=== PATIENT | female | born 1945 | race Caucasian/White ===

== ENCOUNTER 2019-10-10 13:45 | Outpatient (CLI) | payer MEDICARE, OTHER ==
[~2019-10-10] VITALS: Ht 167.7 cm; Wt 91.4 kg
[2019-10-10 14:02] VITALS: BP 131/70
[2019-10-10] MEDS ORDERED: LOSA50TA63 PO (14:44)
[2019-10-10] MEDS ORDERED: TURM500C4 PO (14:44)
[2019-10-10] MEDS ORDERED: LEVO50TA6 PO (14:44)
[2019-10-10] MEDS ORDERED: CYAN500T44 PO (14:44)
[2019-10-10] MEDS ORDERED: VERA80TA2 PO (14:44)
[2019-10-10] MEDS ORDERED: ASPI-586 PO (14:44)
[2019-10-10] MEDS ORDERED: POTA99TA18 PO (14:44)
[2019-10-10] MEDS ORDERED: MAGN250T13 PO (14:44)
[2019-10-10] MEDS ORDERED: OMEP20CA13 PO (14:44)
[2019-10-10 15:17] LABS: INR 0.9 (0.8-1.4); PROTHROMBIN TIME PATIENT 12.9 SEC (12.2-14.7)
[2019-10-10] MEDS ORDERED: OMEP40CA36 PO (15:19)
[2019-10-10] MEDS ORDERED: VERA40TA2 PO (15:19)
[2019-10-12] MEDS ORDERED: OXYC1TAB87 PO (09:17)
== END 2019-10-10 14:40 | disposition home or self-care (01) ==
LOC: PREOP 13:45
PROVIDERS: ATTEND Orthopaedic Surgery
DX: Z01.812 Encounter for preprocedural laboratory examination (principal); M17.12 Unilateral primary osteoarthritis, left knee
CPT/HCPCS: 36415; 85610; 85652; 86850; 86900; 86901; 87081

== ENCOUNTER 2019-10-12 07:37 | Inpatient (IN) | payer MEDICARE, OTHER ==
--- NOTE | 2019-10-09 02:01 | HISTORY AND PHYSICAL ---
DATE OF SERVICE: ADMISSION HISTORY AND PHYSICAL DATE OF ADMISSION: 10/12/2019. This will be for inpatient admission on 10/12/2019 for the left total knee arthroplasty. HISTORY OF PRESENT ILLNESS: The patient is a 74-year-old female with known osteoarthritis of her left knee. She has undergone treatment with injections, anti-inflammatories and rest without relief. Radiographs reveal severe medial and patellofemoral arthrosis with varus alignment. Due to functional impairment and failure to improve with conservative measures, the patient has elected to proceed with surgical intervention. REVIEW OF SYSTEMS: No chest pain, no shortness of breath and no dysuria. PAST MEDICAL HISTORY: Hypothyroidism, hypertension, arrhythmia and reflux. PAST SURGICAL HISTORY: Hemorrhoid, colon resection, bilateral carpal tunnel and cataracts. FAMILY HISTORY: Significant for asthma, hypertension, Alzheimer's, cardiovascular disease. PRIMARY CARE PROVIDER: Nonlocal. MEDICATIONS: 1. Levothyroxine. 2. Losartan. 3. Verapamil. 4. Omeprazole. 5. Turmeric. 6. Calcium. 7. Fluticasone. 8. Medrol Dosepak p.r.n. ALLERGIES: SIMVASTATIN and LIPITOR. SOCIAL HISTORY: The patient is a former smoker. Denies alcohol use. PHYSICAL EXAMINATION: GENERAL: The patient is well developed, well nourished, in no acute distress. HEENT: Normocephalic and atraumatic. Pupils are equal, round, reactive to light. Lateral oropharynx is clear. NECK: Supple, no lymphadenopathy. LUNGS: Clear to auscultation bilaterally. HEART: Regular rate and rhythm. ABDOMEN: Soft, nontender and nondistended. EXTREMITIES: The left knee demonstrates varus alignment. She has a slight effusion. There is no erythema or warmth. Range of motion is 0/3/120. No varus valgus laxity. Negative anterior and posterior drawer. She ambulates with an antalgic gait. IMPRESSION: Severe left knee osteoarthritis, unresponsive to conservative measures. PLAN: Left total knee arthroplasty. The risks, benefits, options, ramifications and recovery have been discussed at length with the patient. She will require regular inpatient admission due to comorbidities, gait abnormalities, need for physical therapy and need for pain management. Job ID: [id number] DocumentID: [id number] Dictated Date: 09/30/2019 09:42:36 Torch Cutter Date: 09/30/2019 10:06:04 Dictated By: MYRIAM AVILA MD
[~2019-10-12] VITALS: Ht 167.6 cm; Wt 93.8 kg
[2019-10-12] VITALS (10 sets, daily range): BP systolic 114–173; BP diastolic 56–73
[~2019-10-12 07:37] MED LIST: ACETAMINOPHEN 325 MG TABLET PO PRN; ASPI-586 PO; CYAN500T44 PO; LEVO50TA6 PO; LOSA50TA63 PO; MAGN250T13 PO; OMEP20CA13 PO; OMEP40CA36 PO; POTA99TA18 PO; TURM500C4 PO; VERA40TA2 PO; VERA80TA2 PO; diphenhydrAMINE 50 MG/ML INJ (BENADRYL) IVP PRN; morphine PCA 100 MG/100 ML BAG IV PRN
[2019-10-12] MEDS ORDERED: LACTATED RINGERS 1,000 ML IV PRN (07:47)
[2019-10-12] MEDS ORDERED: INTRA-ARTICULAR IU ONE ×5 (08:00)
[2019-10-12] MEDS ORDERED: MULT-618 PO (08:07)
[2019-10-12] MEDS ORDERED: fentaNYL INJECTION 100 MCG/2 ML AMP ONE (08:24)
[2019-10-12] MEDS ORDERED: MIDAZOLAM 2 MG/2 ML (VERSED) VIAL ONE ×2 (08:24→08:41)
[2019-10-12] MEDS ORDERED: BUPIVACAINE 0.5% 30 ML (SENSORCAINE) VIAL ONE (08:29)
[2019-10-12] MEDS ORDERED: DEXAMETHASONE 10 MG/ML (DECADRON) 1 ML VIAL ONE (08:31)
[2019-10-12] MEDS ORDERED: LIDOCAINE PF 2% 5 ML (XYLOCAINE) VIAL ONE (08:31)
[2019-10-12] MEDS ORDERED: proPOfol 200 MG/20 ML (DIPRIVAN) VIAL IV ONE (08:31)
[2019-10-12] MEDS ORDERED: SEVOFLURANE (ULTANE) 15 ML INHAL SOLN ONE ×2 (08:31→10:19)
[2019-10-12] MEDS ORDERED: ONDANSETRON 4 MG/2 ML (SDV) Z0FRAN ONE (08:31)
[2019-10-12] MEDS ORDERED: CEFUROXIME 1.5 GM (ZINACEF) VIAL ONE (08:58)
[2019-10-12] MEDS ORDERED: WATER (STERILE) FOR INJECTION 20 ML ONE (08:58)
--- NOTE | 2019-10-12 09:13 | Progress Note-Pre Operative ---
Pre-Operative Progress Note H&P Reviewed The H&P was reviewed, patient examined and no changes noted. Date Seen by Provider: Oct 12, 2019 Time Seen by Provider: 09:00 Date H&P Reviewed: Oct 12, 2019 Time H&P Reviewed: 07:15 Pre-Operative Diagnosis: left primary osteoarthritis MYRIAM AVILA MD Oct 12, 2019 09:13 POS
--- NOTE | 2019-10-12 09:15 | Progress Note-Post Operative ---
Post-Operative Progess Note Surgeon (s)/Psychology Intern (s) Surgeon MYRIAM AVILA MD Psychology Intern: Evangelist Wilson Pre-Operative Diagnosis left knee primary osteoarthritis Post-Operative Diagnosis left knee primary osteoarthritis Procedure & Operative Findings Date of Procedure 10/12/19 Procedure Performed/Findings left total knee arthroplasty Anesthesia Type GETA Estimated Blood Loss Estimated blood loss (mL): minimal Specimens/Packing Specimens Removed none Packing: none MYRIAM AVILA MD Oct 12, 2019 09:15 POS
[2019-10-12] MEDS ORDERED: OXYC1TAB87 PO (09:17)
--- NOTE | 2019-10-12 09:18 | D/C HH Face to Face Order ---
D/C Face to Face Orders Reconcile Patient Problems Problems Reviewed?: Yes Instructions for Patient [employer] Patient Instructions/FollowUp: follow up in three weeks Physician to follow Patient: three weeks Discharge Diet for Home: Regular Diet Patient Data-Allergies,Ht & Wt Patient Allergies: Coded Allergies: atorvastatin (Verified Allergy, Unknown, JOINT PAIN, 10/10/19) simvastatin (Verified Allergy, Unknown, JOINT PAIN, 10/10/19) Home Health Need/Face to Face Date of Face to Face: Oct 12, 2019 Clinical Findings: Instability, Muscle weakness, Pain with ambulation, Unsteady gait I have seen Pt ufgl-wx-ovay: Yes Discharged To: Home Diagnosis/Conditions: left total knee arthroplasty Patient is Homebound due to: Lewis fall risk due to instabilty, Muscle weakness, Pain w/ambulation Homebound Status Due to the above stated illness, injury or surgical procedure (medical condition or diagnosis) and associated clinical findings, the patient is homebound because of his/her inability to leave home except with aid of a supportive device and/or person AND leaving the home requires a considerable and taxing effort or is medically contraindicated. Pt req the following assistanc: Walker Home Health Nursing Orders Home Health Services Order: Physical Therapy-Evaluate & Treat DC left knee belia and apply steri strips 10/26/19 Home Health Infusion Therapy Line Start Date: Oct 12, 2019 Therapy Orders Therapy Orders: Physical Therapy, PT to assess for OT Therapy Specific Orders: Eval assistive deivces, Teach enviro modifications/safety, Gait training, Increase strength/endurance, Provider maintenance therapy, Restore ROM Certify Stmt I certify that this patient is under my care and that I, a nurse practitioner or a physician; a accounting administrative assistant working with me, had a face to face encounter that - meets the physician face to face encounter requirements with this patient as dated. MYRIAM AVILA MD Oct 12, 2019 09:18 POS
[2019-10-12] MEDS ORDERED: hydrALAZINE (APESOLINE) 20 MG/ML VIAL ONE (10:05)
[2019-10-12] MEDS ORDERED: HYDROmorphone 2 MG/ML VIAL (DILAUDID) ONE (10:05)
[2019-10-12] MEDS ORDERED: ONDANSETRON 4 MG/2 ML (SDV) Z0FRAN IVP PRN (11:15)
[2019-10-12] MEDS ORDERED: morphine INJ 10 MG/ML 1ML (SYR OR VIAL) IVP ONE (11:15)
--- NOTE | 2019-10-12 11:34 | Anesthesia-General Post-Op ---
General Patient Condition Mental Status/LOC: Same as Preop Cardiovascular: Satisfactory Nausea/Vomiting: Absent Respiratory: Satisfactory Pain: Controlled Complications: Absent Post Op Complications Complications None Follow Up Care/Instructions Patient Instructions None needed. Anesthesia/Patient Condition Patient Condition Patient is doing well, no complaints, stable vital signs, no apparent adverse anesthesia problems. No complications reported per nursing. RODDY MILTON CRNA Oct 12, 2019 11:34 POS
--- NOTE | 2019-10-12 11:47 | Progress Note ---
Standard Progress Note Progress Notes/Assess & Plan Date Seen by a Provider: Oct 12, 2019 Time Seen by a Provider: 11:45 Progress/Assessment & Plan post op check no complaints radiographs--HW well positioned without fracture LLE--2 plus DP pulse with brisk cap refill. intact sensation throughout. intact DF and PF of toes and ankle s/p LTKA mobilize as able MYRIAM AVILA MD Oct 12, 2019 11:46 POS
[2019-10-12] MEDS ORDERED: NS IV 1000 ML 1,000 ML ONE (13:32)
[2019-10-12] MEDS ORDERED: morphine PCA 100 MG/100 ML BAG IV ONE (13:32)
[2019-10-12] MEDS: SENNA W/DOCUSATE (SENOKOT S) TABLET PO SCH ×2 (13:57→22:01)
--- NOTE | 2019-10-12 14:39 | Diagnostic Imaging Report ---
INDICATION: Osteoarthritis. Two views of the left knee were obtained. FINDINGS: There are stable postsurgical changes in the left knee arthroplasty. However there is satisfactory positioning. There is no loosening. IMPRESSION: Stable left knee arthroplasty. Dictated by: Dictated on workstation # [id number]
--- NOTE | 2019-10-12 14:54 | OPERATIVE REPORT ---
DATE OF SERVICE: 10/12/2019 PREOPERATIVE DIAGNOSIS: Left knee primary osteoarthritis. PROCEDURE: Left total knee arthroplasty. SURGEON: Santo Avila MD. LIQUID WASTE TREATMENT PLANT OPERATOR: Evangelist Wilson, who assisted throughout the procedure and closed the incision. ANESTHESIA: General endotracheal by Kacy Hui CRNA. TOURNIQUET TIME: 70 minutes at 300 mmHg. ESTIMATED BLOOD LOSS: Minimal. DRAINS: None. COMPLICATIONS: None. POSTOPERATIVE PLAN: Routine protocol. The patient was transferred to the recovery room awake and in stable condition. MATERIALS: Microport cemented size 5 femur, cemented size 5 tibia with a 10 mm insert and cemented size 32 patellar button. STATEMENT OF MEDICAL NECESSITY: The patient is a 74-year-old female with a longstanding progressive left knee pain. Radiographs revealed severe tricompartmental osteoarthritis. She had undergone treatment with injections, anti-inflammatories and rest without relief and due to functional impairment and failure to improve with conservative measures, the patient elected to proceed with surgical intervention. DESCRIPTION OF PROCEDURE: After risks and benefits of the procedure were discussed and questions were answered, an informed consent was signed and placed on the chart. The operative site was confirmed in the preoperative holding area initialed by the surgeon. The patient was then transferred to the operating room and after adequate levels of general endotracheal anesthetic were obtained, a timeout was called confirming the operative site. The left lower extremity was prepped and draped in the usual sterile fashion with the leg elevated and the knee flexed, tourniquet was inflated to 300 mmHg. A standard anterior approach was utilized. Hemostasis was obtained with cautery. Medial parapatellar arthrotomy was performed leaving 1 cm cuff on the patella for later reattachment. A portion of the fat pad was resected. A subperiosteal release was performed in the proximal medial tibia being careful to stay on the bony surface. The ACL was resected. Intramedullary guide was passed into the femur. The distal cutting block was placed and the cut was made. The femur was sized to a size 5. The 5 cutting block was placed parallel to the epicondylar axis and cuts were made from posterior to anterior. Subperiosteal release was then carefully performed on the posterior distal femur being careful to stay on the bony surface. Intramedullary guide was then passed into the tibia. The cutting block was placed. The drop servando transected the intermalleolar axis and cut was made. The baseplate was placed and drop servando transected the intermalleolar axis and this was prepared with the drill and keel punch. The femoral trial was placed and trochlear cut was made. The trochlear cut was made and a 10 mm insert was placed. The patella was then prepared by using the freehand technique by resecting 10 mm off the undersurface and a peg guide was placed and peg holes were drilled. The 32 trial was placed. The knee demonstrated full extension and greater than 120 degrees of flexion with gravity. There was no anterior/posterior or medial/lateral laxity in flexion or extension and the patella tracked well. The trials were removed. The joint was irrigated with pulse lavage. Periarticular block was placed in the posterior capsule, medial and lateral retinaculum, extensor mechanism and subcutaneous tissues. The bone ends were irrigated and dried. The tibial baseplate was cemented into position. Excess cement was removed. Superior surface was irrigated and dried and the polyethylene insert was placed. The distal femur was irrigated and dried and the femoral prosthesis was then cemented into position, removing excessive cement. The undersurface of the patella was then irrigated and dried and the patellar button was cemented into position. Excessive cement was removed. Once the cement had cured, the knee was taken through range of motion. Full extension was easily obtained and 120 degrees of flexion with gravity was easily obtained. The patella tracked well. There was no anterior/posterior or medial/lateral laxity in flexion or extension. The joint was copiously irrigated. The arthrotomy was closed with #2 Tevdek in a fcutty-ea-nenlb interrupted fashion. Knee was flexed. The patella tracked well. There was no undue tension at the repair site. The subcutaneous tissues were irrigated using a total of 6 liters throughout the procedure. A 0 Vicryl was used to reapproximate the deep subcutaneous layer and a 2-0 Vicryl for the superficial subcutaneous layer and belia used on the skin. A soft dressing was applied. The tourniquet was deflated and the patient was transferred to the recovery room awake and in stable condition. Job ID: [id number] DocumentID: [id number] Dictated Date: 10/12/2019 11:00:57 Emissions Technician Date: 10/12/2019 14:53:38 Dictated By: SANTO AVILA MD
--- NOTE | 2019-10-12 15:23 | Physical Therapy Evaluation ---
PT Evaluation-General Medical Diagnosis Admission Date Oct 12, 2019 at 07:37 Medical Diagnosis: S/P L TKA Onset Date: Oct 12, 2019 Therapy Diagnosis Therapy Diagnosis: abn gait, weakness, impaired balance, decreased activity sterling Precautions Precautions/Isolations: Fall Prevention, Standard Precautions Weight Bear Status Right Lower Extremity: Right Full Weight Bearing Left Lower Extremity: Left Weight Bearing/Tolerated Referral Physician: Steve Reason for Referral: Evaluation/Treatment, Strengthening Medical History Additional Medical History PAST MEDICAL HISTORY: Hypothyroidism, hypertension, arrhythmia and reflux. PAST SURGICAL HISTORY: Hemorrhoid, colon resection, bilateral carpal tunnel and cataracts. Reviewed History: Yes Social History Home: Single Level Current Living Status: Spouse Entry Into Home: Stairs With Railing PT Steps Into Home: 4 Prior Prior Level of Function SCALE: Activities may be completed with or without assistive devices. 3-Gfimirrmho-ozitnll completes the activity by him/herself with no assistance from a helper. 5-Set-up or Clean-up Assistance-helper sets up or cleans up; patient completes activity. [place] assists only prior to or following the activity. 4-Supervision or Touching Assistance-helper provides verbal cues and/or touching/steadying and/or contact guard assistance as patient completes activity. Assistance may be provided throughout the activity or intermittently. 3-Partial/Moderate Assistance-helper does LESS THAN HALF the effort. [place] lifts, holds or supports trunk or limbs, but provides less than half the effort. 2-Substantial/Maximal Assistance-helper does MORE THAN HALF the effort. [place] lifts or holds trunk or limbs and provides more than half the effort. 4-Dhscyzmke-paahbo does ALL the effort. Patient does none of the effort to complete the activity. Or, the assistance of 2 or more helpers is required for the patient to complete the activity. If activity was not attempted, code reason: 7-Patient Refused. 9-Not Applicable-not attempted and the patient did not perform the activity before the current illness, exacerbation or injury. 10-Not Attempted due to Environmental Limitations-(lack of equipment, weather restraints, etc.). 88-Not Attempted due to Medical Conditions or Safety Concerns. Bed Mobility: 6 Transfers (B,C,W/C): 6 Gait: 6 Stairs: 6 Indoor Mobility (Ambulation): Independent Stairs: Independent PT Evaluation-Current Subjective pt in bed pre-tx agrees to therapy. pt denies any pain at this time. pt present for duration of session pt in bed post-tx with CPM in place set for 80degrees flexion and -2 degrees past extension. pt with call light, room phone, tray table in reach with all needs met at this time. Pt/Family Goals pt goal to go back home Objective Patient Orientation: Person, Place, Time, Situation Attachments: SCD's, Oxygen, Polar Pack, IV CPM ROM/Strength ROM Lower Extremities L Knee flexion 70degrees Extension 8degrees lacking TKE Integumentary/Posture Integumentary see nursing notes Sensory Vision: Functional Hearing: Functional Sensation Right Lower Extremit: Intact Sensation Left Lower Extremity: Intact Transfers Roll Left to Right (QC): 3 (Jose) Sit to Lying (QC): 3 (Jose) Lying to Sitting/Side of Bed(Q: 3 (modA) Sit to Stand (QC): 9 Chair/Obj-vy-Xqsuo Xfer(QC): 9 Car Transfer (QC): 9 Gait Does the Patient Walk?: No and Walking Goal IS indicated Mode of Locomotion: Walk Anticipated Mode of Locomotion: Walk Walk 10 feet (QC): 9 Walk 50 ft with 2 Turns(QC): 9 Walk 150 ft (QC): 9 Walking 10ft/uneven surface-QC: 9 Wheelchair Training Does the Pt Use a Wheelchair?: No Wheel 50 ft with 2 turns (QC): 9 Wheel 150 ft (QC): 9 Type of Wheelchair: Manual Stairs 1 Step (curb) (QC): 9 4 Steps (QC): 9 12 Steps (QC): 9 Balance Sitting Static: Normal Sitting Dynamic: Good Picking up an Object (QC): 9 Treatment pt performed bed mobility training, transfer training, education, and functional LE strengthening exercises (10reps supine: AP's HS's, SLR, QS's, GS's) Assessment/Needs Pt was unable to attempt sit to stand or ambulation this session secondary to nausea and being unable to stop coughing once she got to sitting EOB. Pt reported "I feel like I'm going to pass out". Pt was able to go back to supine where the feeling resolved but nausea continued. Nurse notified of nausea. Rehab Potential: Fair PT Group Home Goals Oven Equipment Repairer Goals PT Oven Equipment Repairer Goals Time Frame: Oct 19, 2019 Roll Left & Right (QC): 6 Sit to Lying (QC): 6 Lying-Sitting on Side/Bed(QC): 6 Sit to Stand (QC): 6 Chair/Yve-bj-Ppfdi Xfer(QC): 6 Toilet Transfer (QC): 6 Car Transfer (QC): 9 Does the Patient Walk: No and Walking Goal IS indicated Walk 10 feet (QC): 4 (SBA) Walk 50ft with 2 Turns (QC): 4 (SBA) Walk 150 ft (QC): 4 (SBA) Walking 10ft on Uneven Surface: 9 1 Step (curb) (QC): 4 (CGA) 4 Steps (QC): 4 (CGA) 12 Steps (QC): 9 Picking up an Object (QC): 9 Does the Pt use WC or Scooter?: No Type: N/A Type: N/A PT Plan Problem List Problem List: Activity Tolerance, Functional Strength, Safety, Balance, Gait, Transfer, Bed Mobility, ROM Treatment/Plan Treatment Plan: Continue Plan of Care Treatment Plan: Bed Mobility, Education, Functional Activity Ale, Functional Strength, Group Therapy, Gait, Safety, Therapeutic Exercise, Transfers Treatment Duration: Oct 19, 2019 Frequency: 11 times per week Estimated Hrs Per Day: .25 hour per day Patient and/or Family Agrees t: Yes Safety Risks/Education Patient Education: Transfer Techniques, Correct Positioning, Safety Issues Teaching Recipient: Patient, Family Teaching Methods: Demonstration, Discussion Response to Teaching: Return Demonstration, Reinforcement Needed Discharge Recommendations Plan pt will perform skilled ambulation training, functional LE strengthening exercises, bed mobility training, transfer training, and education. Therapy Discharge Recommendati: Other, See Comments (NH, home with family, rehab) Time/GCodes Time In: 1441 Time Out: 1503 Total Billed Treatment Time: 22 Total Billed Treatment 1 visit EVL HORACIO HOYT PT Oct 12, 2019 15:23 POS
[2019-10-12] MEDS: CEFUROXIME INJECTION 750 MG in WATER (STERILE) FOR INJECTION 10 ML IV SCH ×2 (16:53→23:40)
[2019-10-12] MEDS: ONDANSETRON 4 MG/2 ML (SDV) Z0FRAN IVP PRN (17:55)
[2019-10-12] MEDS: NS IV 1000 ML 1,000 ML IV SCH ×2 (18:17→20:24)
[2019-10-12] MEDS ORDERED: VERAPAMIL HCL 40 MG PO SCH (21:00)
[2019-10-12] MEDS: PANTOPRAZOLE 40 MG (PROTONIX) TAB PO SCH (21:55)
[2019-10-12] MEDS: VERAPAMIL 80 MG (ISOPTIN) TAB PO SCH (22:01)
[2019-10-13] VITALS (7 sets, daily range): BP systolic 105–145; BP diastolic 52–69
[2019-10-13] MEDS: NS IV 1000 ML 1,000 ML IV SCH ×2 (01:53→13:43)
[2019-10-13 05:55] LABS: HEMOGLOBIN 11.2 G/DL (11.5-16.0)
[2019-10-13] MEDS: LEVOTHYROXINE 50 MCG (LEVOTHROID) TAB PO SCH (05:57)
[2019-10-13] MEDS: MULTIVIT W/MINERALS TAB (THERAGRAN M) PO SCH (05:57)
[2019-10-13] MEDS: PANTOPRAZOLE 40 MG (PROTONIX) TAB PO SCH (05:57)
[2019-10-13] MEDS: ENOXAPARIN 30 MG/0.3 ML (LOVENOX) SYR SC SCH ×2 (06:31→18:21)
[2019-10-13] MEDS ORDERED: NON-FORMULARY MEDICATION 1 EA EA (Omeprazole 40 MG) PO SCH (07:00)
--- NOTE | 2019-10-13 07:59 | Progress Note ---
Standard Progress Note Progress Notes/Assess & Plan Date Seen by a Provider: Oct 13, 2019 Time Seen by a Provider: 07:59 Progress/Assessment & Plan post op check no complaints radiographs--HW well positioned without fracture LLE--2 plus DP pulse with brisk cap refill. intact sensation throughout. intact DF and PF of toes and ankle s/p LTKA mobilize as able Final Diagnosis feeling better. Vital Signs Date Time Temp Pulse Resp B/P (MAP) Pulse Ox O2 Delivery O2 Flow Rate FiO2 10/13/19 04:35 36.7 90 18 138/64 (88) 95 Nasal Cannula 1.00 10/13/19 00:05 36.5 82 19 131/60 (83) 95 Nasal Cannula 1.00 10/12/19 21:00 95 Nasal Cannula 1.00 10/12/19 20:05 36.5 95 18 128/59 (82) 97 Nasal Cannula 1.00 10/12/19 18:41 98 Nasal Cannula 1.00 10/12/19 16:09 36.6 88 18 115/65 (82) 98 Nasal Cannula 2.00 10/12/19 13:54 16 10/12/19 12:05 Nasal Cannula 3 10/12/19 12:00 36.0 83 16 114/57 (76) 95 Room Air 10/12/19 11:50 16 118/56 (76) 3 Nasal Cannula 3 10/12/19 11:50 Nasal Cannula 3 10/12/19 11:40 16 123/57 (79) 94 OxyMask 3 10/12/19 11:35 OxyMask 5 10/12/19 11:30 16 116/68 (84) 94 OxyMask 3 10/12/19 11:20 OxyMask 10 10/12/19 11:20 16 122/66 (84) 94 OxyMask 10/12/19 11:10 16 122/62 (82) 95 OxyMask 10 10/12/19 11:10 OxyMask 10 10/12/19 11:03 OxyMask 10 10/12/19 11:03 37.3 16 124/59 (80) 99 OxyMask 10 I & O 10/13/19 07:00 Intake Total 3270 ml Output Total 700 ml Balance 2570 ml Laboratory Tests Test 10/13/19 05:39 Range/Units Hemoglobin 11.2 L 11.5-16.0 G/DL Hematocrit 34 L 35-52 % LLE--dressing intact. NVI distally. No calf tenderness. Neg Dominic's s/p [facility] PT/OT MYRIAM AVILA MD Oct 13, 2019 07:59 POS
[2019-10-13] MEDS: VERAPAMIL 80 MG (ISOPTIN) TAB PO SCH ×2 (08:44→20:23)
[2019-10-13] MEDS: SENNA W/DOCUSATE (SENOKOT S) TABLET PO SCH ×2 (08:44→20:23)
[2019-10-13] MEDS: ASPIRIN E.C. 81 MG (ECOTRIN) TAB PO SCH (08:44)
[2019-10-13] MEDS: LOSARTAN 50 MG (COZAAR) TAB PO SCH (08:44)
[2019-10-13] MEDS ORDERED: NON-FORMULARY MEDICATION 1 EA EA (Losartan Potassium 50 MG) PO SCH (09:00)
[2019-10-13] MEDS: oxyCODONE/APAP 5/325MG (PERCOCET 5) TABLET PO PRN ×5 (09:10→23:17)
--- NOTE | 2019-10-13 10:06 | Physical Therapy Daily Note ---
PT Daily Note-Current Subjective Patient agrees to PT. Reports she has not been up because she was nauseous and groggy after surgery. Reports severe pain at 7/10. Pain Numeric Pain Scale: 7 Location: Left Location Body Site: Knee Pain Description: Acute Mental Status Patient Orientation: Person, Place, Time, Situation Attachments: SCD's, Polar Pack, IV Transfers SCALE: Activities may be completed with or without assistive devices. 8-Ioypedfbfd-japyetj completes the activity by him/herself with no assistance from a helper. 5-Set-up or Clean-up Assistance-helper sets up or cleans up; patient completes activity. [place] assists only prior to or following the activity. 4-Supervision or Touching Assistance-helper provides verbal cues and/or touching/steadying and/or contact guard assistance as patient completes activity. Assistance may be provided throughout the activity or intermittently. 3-Partial/Moderate Assistance-helper does LESS THAN HALF the effort. [place] lifts, holds or supports trunk or limbs, but provides less than half the effort. 2-Substantial/Maximal Assistance-helper does MORE THAN HALF the effort. [place] lifts or holds trunk or limbs and provides more than half the effort. 9-Zemvsqvie-brdnfd does ALL the effort. Patient does none of the effort to complete the activity. Or, the assistance of 2 or more helpers is required for the patient to complete the activity. If activity was not attempted, code reason: 7-Patient Refused. 9-Not Applicable-not attempted and the patient did not perform the activity before the current illness, exacerbation or injury. 10-Not Attempted due to Environmental Limitations-(lack of equipment, weather restraints, etc.). 88-Not Attempted due to Medical Conditions or Safety Concerns. Roll Left & Right (QC): 3 Sit to Lying (QC): 4 Lying to Sitting/Side of Bed(Q: 3 Sit to Stand (QC): 3 ModA to stand and transfer supine to sit; Jose sit to supine Weight Bearing Right Lower Extremity: Right Full Weight Bearing Left Lower Extremity: Left Weight Bearing/Tolerated Gait Training Does the Patient Walk?: Yes Distance: 100' Walk 10 feet (QC): 3 Walk 50 ft with 2 Turns(QC): 3 Gait Assistive Device: FWW Jose; slow, antalgic gait, circumduction d/t lack of knee flexion during ambulation Exercises Supine Ex: Ankle pumps, Heel Slides, Straight leg raise Supine Reps: 10 Seated Therapy Exercises: Long arc quads, Hip flexion Seated Reps: 10 Assessment Patient required modA to transfer from supine to sitting EOB, requiring help with moving LLE and to scoot to EOB. ModA to stand from EOB with FWW without weight bearing on LLE. Patient ambulated 100' with antalgic and circumducted gait, reluctant to flex knee during ambulation. Patient able to complete supine and seated exercises with assistance. Patient able to lift leg onto bed from sitting, requiring only Jose to return to supine from sitting EOB. Patient in bed with polar pack and CPM at 70 deg flexion at conclusion of treatment. PT Half-Way Goals Half-Way Goals PT Half-Way Goals Time Frame: Oct 19, 2019 Roll Left & Right (QC): 6 Sit to Lying (QC): 6 Lying-Sitting on Side/Bed(QC): 6 Sit to Stand (QC): 6 Chair/Vly-xy-Mkjpt Xfer(QC): 6 Toilet Transfer (QC): 6 Car Transfer (QC): 9 Does the Patient Walk: No and Walking Goal IS indicated Walk 10 feet (QC): 4 (SBA) Walk 50ft with 2 Turns (QC): 4 (SBA) Walk 150 ft (QC): 4 (SBA) Walking 10ft on Uneven Surface: 9 1 Step (curb) (QC): 4 (CGA) 4 Steps (QC): 4 (CGA) 12 Steps (QC): 9 Picking up an Object (QC): 9 Does the Pt use WC or Scooter?: No Type: N/A Type: N/A PT Plan Treatment/Plan Treatment Plan: Continue Plan of Care Treatment Plan: Bed Mobility, Education, Functional Activity Ale, Functional Strength, Group Therapy, Gait, Safety, Therapeutic Exercise, Transfers Treatment Duration: Oct 19, 2019 Frequency: 11 times per week Estimated Hrs Per Day: .25 hour per day Patient and/or Family Agrees t: Yes Time/GCodes Time In: 851 Time Out: 917 Total Billed Treatment Time: 26 Total Billed Treatment 1 visit EX 10min FA 16min JOHN MUNOZ PT Oct 13, 2019 10:05 POS
[2019-10-13] MEDS ORDERED: PATIENT MAY USE OWN MED,SINGLE MED PO SCH (12:15)
--- NOTE | 2019-10-13 13:18 | Consultation - Hospitalist ---
HPI History of Present Illness: HPI/Chief Complaint Pt is a 74yoCF with a PMH of HTN, GERD, and hypothyroidism who was admitted for left osteoarthritis and subsequent TKA. She reports she is having some nausea and poor oral intake. Her pain is controlled though with her current regimen. Her BP has been well controlled. She is currently on her antihypertensives. She has no other complaints. I am consulted for medical management. Source: patient Exam Limitations: clinical condition Date Seen 10/13/19 Attending Physician Santo Atkins MD PCP No,Local Physician Referring Physician Dr Atkins Date of Admission Oct 12, 2019 at 07:37 Home Medications & Allergies Home Medications Reviewed patient Home Medication Reconciliation performed by pharmacy medication reconciliations door technician and/or nursing. Patients Allergies have been reviewed. Allergies Allergies Coded Allergies atorvastatin (Verified Allergy, Unknown, JOINT PAIN, 10/10/19) simvastatin (Verified Allergy, Unknown, JOINT PAIN, 10/10/19) Past Fjvrwmk-Whsccv-Lhyhuz Hx Past Med/Social Hx: Reviewed Nursing Past Med/Soc Hx Patient Social History Marrital Status: Alcohol Use: Rarely Uses Recreational Drug Use: No Smoking Status: Former Smoker Former Smoker, Quit: Oct 10, 1974 Physical Abuse Screen: No Sexual Abuse: No Recent Foreign Travel: No Contact w/other who traveled: No Recent Hopitalizations: No Recent Infectious Disease Expo: No Immunizations Up To Date Date of Influenza Vaccine: Sep 23, 2019 Seasonal Allergies Seasonal Allergies: No Past Medical History Surgeries: Orthopedic Cardiac: Hypertension Gastrointestinal: Gastroesophageal Reflux, Chronic Diarrhea Musculoskeletal: Arthritis Endocrine: Hypothyroidsim History of Blood Disorders: No Family History Reviewed Nursing Family Hx Alzheimer's disease 19 MOTHER Completed stroke G8 SISTER Drug abuse G8 BROTHER Parkinson's disease G8 SISTER Respiratory disorder 19 FATHER Review of Systems Constitutional: no symptoms reported EENTM: no symptoms reported Respiratory: no symptoms reported Cardiovascular: no symptoms reported Gastrointestinal: loss of appetite, nausea Genitourinary: no symptoms reported Musculoskeletal: no symptoms reported Skin: no symptoms reported Psychiatric/Neurological: No Symptoms Reported Physical Exam Physical Exam Vital Signs Vital Signs - First Documented Capillary Refill : Less Than 3 Seconds Height, Weight, BMI Height: '" Weight: lbs. oz. kg; 33.39 BMI Method: General Appearance: No Apparent Distress, WD/WN Respiratory: Lungs Clear, No Accessory Muscle Use, No Respiratory Distress Cardiovascular: Regular Rate, Rhythm, No Murmur Gastrointestinal: Normal Bowel Sounds, Non Tender, Soft Extremity: No Calf Tenderness, No Pedal Edema Neurologic/Psychiatric: Alert, Oriented x3 Skin: Normal Color, Warm/Dry Results Results/Procedures Labs Laboratory Tests 10/13/19 05:39 Patient resulted labs reviewed. 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
[2019-10-13] MEDS: ONDANSETRON 4 MG/2 ML (SDV) Z0FRAN IVP PRN (13:43)
--- NOTE | 2019-10-13 15:09 | Physical Therapy Daily Note ---
PT Daily Note-Current Subjective Patient agrees to attempt PT. Reports feeling nauseous. Patient also reports taking pain pill around noon but not eating anything since breakfast. Pain Numeric Pain Scale: 5-Moderate Pain Location: Left Location Body Site: Knee Pain Description: Acute Mental Status Patient Orientation: Person, Place, Time, Situation Attachments: SCD's, Polar Pack, IV Transfers SCALE: Activities may be completed with or without assistive devices. 6-Wmmkbkkhxz-axuvubc completes the activity by him/herself with no assistance from a helper. 5-Set-up or Clean-up Assistance-helper sets up or cleans up; patient completes activity. [place] assists only prior to or following the activity. 4-Supervision or Touching Assistance-helper provides verbal cues and/or touching/steadying and/or contact guard assistance as patient completes activity. Assistance may be provided throughout the activity or intermittently. 3-Partial/Moderate Assistance-helper does LESS THAN HALF the effort. [place] lifts, holds or supports trunk or limbs, but provides less than half the effort. 2-Substantial/Maximal Assistance-helper does MORE THAN HALF the effort. [place] lifts or holds trunk or limbs and provides more than half the effort. 9-Yclvlsrva-eyivdd does ALL the effort. Patient does none of the effort to complete the activity. Or, the assistance of 2 or more helpers is required for the patient to complete the activity. If activity was not attempted, code reason: 7-Patient Refused. 9-Not Applicable-not attempted and the patient did not perform the activity before the current illness, exacerbation or injury. 10-Not Attempted due to Environmental Limitations-(lack of equipment, weather restraints, etc.). 88-Not Attempted due to Medical Conditions or Safety Concerns. Roll Left & Right (QC): 3 Lying to Sitting/Side of Bed(Q: 3 Sit to Stand (QC): 3 Weight Bearing Right Lower Extremity: Right Full Weight Bearing Left Lower Extremity: Left Weight Bearing/Tolerated Gait Training Does the Patient Walk?: Yes Distance: 100' Walk 10 feet (QC): 3 Walk 50 ft with 2 Turns(QC): 3 Gait Assistive Device: FWW Slow, antalgic gait, UE weight on walker Exercises Supine Ex: Ankle pumps, Heel Slides, Straight leg raise Supine Reps: 10 Seated Therapy Exercises: Long arc quads, Hip flexion Seated Reps: 10 Assessment Patient able to perform supine and seated exercises, with assistance for SLR and limited ROM for heel slides and LAQ. After reports of nausea and taking pain medication on empty stomach, patient given nausea medication by nurse and crackers and sprite to ease nausea. Patient able to stand from EOB with assistance and ambulate 100' Jose with FWW. Upon return to room, patient seated in chair. PT Group Home Goals Security Field Supervisor Goals PT Group Home Goals Time Frame: Oct 19, 2019 Roll Left & Right (QC): 6 Sit to Lying (QC): 6 Lying-Sitting on Side/Bed(QC): 6 Sit to Stand (QC): 6 Chair/Qzr-fk-Bipsh Xfer(QC): 6 Toilet Transfer (QC): 6 Car Transfer (QC): 9 Does the Patient Walk: No and Walking Goal IS indicated Walk 10 feet (QC): 4 (SBA) Walk 50ft with 2 Turns (QC): 4 (SBA) Walk 150 ft (QC): 4 (SBA) Walking 10ft on Uneven Surface: 9 1 Step (curb) (QC): 4 (CGA) 4 Steps (QC): 4 (CGA) 12 Steps (QC): 9 Picking up an Object (QC): 9 Does the Pt use WC or Scooter?: No Type: N/A Type: N/A PT Plan Treatment/Plan Treatment Plan: Continue Plan of Care Treatment Plan: Bed Mobility, Education, Functional Activity Ale, Functional Strength, Group Therapy, Gait, Safety, Therapeutic Exercise, Transfers Treatment Duration: Oct 19, 2019 Frequency: 11 times per week Estimated Hrs Per Day: .25 hour per day Patient and/or Family Agrees t: Yes Time/GCodes Time In: 1331 Time Out: 1405 Total Billed Treatment Time: 34 Total Billed Treatment 1 visit GT 14min EX 20min JOHN MUNOZ PT Oct 13, 2019 15:09 POS
--- NOTE | 2019-10-13 15:27 | Occ Therapy Progress Note ---
Therapy Progress Note OT order received, chart reviewed. Pt. in bed when OT entered room. Pt. states that she is very nauseated, and is trying to sleep. OT asks if she would like nausea medication if she can have it. Pt. reports that nursing is working on this with her home meds, etc... Pt. declines any type of OOB activity and states that she feels like she will vomit if she sits up. Pt. allowed to rest and OT will check back in a.m. 1, visit [id number] TONY DUMONT OT Oct 13, 2019 15:27 POS
--- NOTE | 2019-10-13 23:56 | DISCHARGE SUMMARY ---
DATE OF SERVICE: DIAGNOSES: 1. Left knee primary osteoarthritis. 2. Hypothyroidism. 3. Hypertension. 4. Arrhythmia. 5. Reflux. PROCEDURE: Left total knee arthroplasty. SUMMARY: The patient is a 74-year-old female who underwent left total knee arthroplasty on the day of admission. Postoperatively, she did very well. At the time of discharge, her wound was clean and dry. She has no calf tenderness. Negative Homans sign. She was tolerating her diet well and tolerating pain with oral pain medication. CONDITION AT DISCHARGE: Good. DISCHARGE DIET: Regular. FOLLOWUP: Followup is in three weeks. ACTIVITIES: Weightbearing as tolerated with walker. DISCHARGE MEDICATIONS: Home medications, aspirin and Percocet as needed for pain. Job ID: [id number] DocumentID: [id number] Dictated Date: 10/13/2019 18:33:05 Tour Director Date: 10/13/2019 23:54:28 Dictated By: MYRIAM AVILA MD
[2019-10-14] MEDS: NS IV 1000 ML 1,000 ML IV SCH (01:49)
[2019-10-14] MEDS: oxyCODONE/APAP 5/325MG (PERCOCET 5) TABLET PO PRN ×4 (01:52→11:03)
[2019-10-14 04:00] VITALS: BP 147/75
[2019-10-14] MEDS: MULTIVIT W/MINERALS TAB (THERAGRAN M) PO SCH (05:50)
[2019-10-14] MEDS: LEVOTHYROXINE 50 MCG (LEVOTHROID) TAB PO SCH (05:51)
[2019-10-14] MEDS: ENOXAPARIN 30 MG/0.3 ML (LOVENOX) SYR SC SCH (05:51)
[2019-10-14] MEDS ORDERED: OMEPRAZOLE 40 MG CAPSULE PO SCH (07:00)
--- NOTE | 2019-10-14 07:01 | Progress Note ---
Standard Progress Note Progress Notes/Assess & Plan Date Seen by a Provider: Oct 14, 2019 Time Seen by a Provider: 06:59 Progress/Assessment & Plan post op check no complaints radiographs--HW well positioned without fracture LLE--2 plus DP pulse with brisk cap refill. intact sensation throughout. intact DF and PF of toes and ankle s/p LTKA mobilize as able Final Diagnosis no complaints Vital Signs Date Time Temp Pulse Resp B/P (MAP) Pulse Ox O2 Delivery O2 Flow Rate FiO2 10/14/19 04:00 37.2 103 18 147/75 (99) 92 Room Air 10/13/19 23:05 36.4 98 20 145/63 (90) 91 Room Air 10/13/19 20:27 36.6 92 20 137/63 (87) 95 Room Air 10/13/19 20:20 Room Air 10/13/19 16:22 36.8 96 20 105/52 (69) 91 Room Air 10/13/19 12:00 36.6 86 18 132/69 (90) 97 Nasal Cannula 1.00 10/13/19 09:00 99 Room Air 10/13/19 08:00 36.7 91 18 145/66 (92) 99 Nasal Cannula 1.00 I & O 10/14/19 07:00 Intake Total 2960 ml Output Total 1700 ml Balance 1260 ml Laboratory Tests Test 10/14/19 05:25 Range/Units Hemoglobin 11.0 L 11.5-16.0 G/DL Hematocrit 34 L 35-52 % LLE--incision clean and dry. No calf tenderness. Neg Dominic's s/p LTKA doing well DC home after PT MYRIAM AVILA MD Oct 14, 2019 07:01 POS
[2019-10-14] MEDS ORDERED: morphine INJ 4 MG/ML 1 ML (VIAL/SYRINGE) IVP PRN (07:15)
[2019-10-14 08:35] VITALS: BP 150/66
[2019-10-14] MEDS: SENNA W/DOCUSATE (SENOKOT S) TABLET PO SCH (08:54)
[2019-10-14] MEDS: ASPIRIN E.C. 81 MG (ECOTRIN) TAB PO SCH (08:54)
[2019-10-14] MEDS: VERAPAMIL 80 MG (ISOPTIN) TAB PO SCH (08:54)
[2019-10-14] MEDS: LOSARTAN 50 MG (COZAAR) TAB PO SCH (08:54)
--- NOTE | 2019-10-14 10:38 | Physical Therapy Daily Note ---
PT Daily Note-Current Subjective Patient agrees to PT at this time. Reports 10/10 during bed mobility and exercises. States she will be going home today and has 4 stairs into house. Pain Numeric Pain Scale: 10-Worst Possible Pain Location: Left Location Body Site: Knee Pain Description: Acute Mental Status Patient Orientation: Person, Place, Time, Situation Transfers SCALE: Activities may be completed with or without assistive devices. 1-Xrizoozhjg-pyxcxrn completes the activity by him/herself with no assistance from a helper. 5-Set-up or Clean-up Assistance-helper sets up or cleans up; patient completes activity. [place] assists only prior to or following the activity. 4-Supervision or Touching Assistance-helper provides verbal cues and/or touching/steadying and/or contact guard assistance as patient completes activity. Assistance may be provided throughout the activity or intermittently. 3-Partial/Moderate Assistance-helper does LESS THAN HALF the effort. [place] lifts, holds or supports trunk or limbs, but provides less than half the effort. 2-Substantial/Maximal Assistance-helper does MORE THAN HALF the effort. [place] lifts or holds trunk or limbs and provides more than half the effort. 6-Bnzcalbae-smyjgj does ALL the effort. Patient does none of the effort to complete the activity. Or, the assistance of 2 or more helpers is required for the patient to complete the activity. If activity was not attempted, code reason: 7-Patient Refused. 9-Not Applicable-not attempted and the patient did not perform the activity before the current illness, exacerbation or injury. 10-Not Attempted due to Environmental Limitations-(lack of equipment, weather restraints, etc.). 88-Not Attempted due to Medical Conditions or Safety Concerns. Lying to Sitting/Side of Bed(Q: 6 Sit to Stand (QC): 6 Toilet Transfer (QC): 4 Weight Bearing Right Lower Extremity: Right Full Weight Bearing Left Lower Extremity: Left Weight Bearing/Tolerated Gait Training Does the Patient Walk?: Yes Distance: 300' Walk 10 feet (QC): 6 Walk 50 ft with 2 Turns(QC): 6 Walk 150 ft (QC): 6 Gait Assistive Device: FWW Antalgic, circumducted gait; lack of L knee flexion Stair Training Stair Training: Handrails/: 1 handrail, uses walker #of Steps: 4 1 Step (curb) (QC): 3 4 Steps (QC): 3 Stairs: Pattern: Step to ModA; required cues for walker placement and gait pattern Exercises Supine Ex: Heel Slides Supine Reps: 15 Seated Therapy Exercises: Long arc quads, Hip flexion Seated Reps: 15 Assessment Patient able to perform supine and seated exercises well but with significant increase in pain. Patient able to perform bed mobility and transfers slowly but independently. Patient required some assistance with sitting and standing during toilet transfer. Patient ambulated independently 300' demonstrating circumducted gait with lack of knee flexion on LLE. Patient completed 4 stairs with assistance for safety and cues for walker and gait pattern. Patient returned to room in recliner with legs elevated at conclusion of treatment. PT District Manager Goals District Manager Goals PT [facility] Goals Time Frame: Oct 19, 2019 Roll Left & Right (QC): 6 Sit to Lying (QC): 6 Lying-Sitting on Side/Bed(QC): 6 Sit to Stand (QC): 6 Chair/Hlj-qd-Yxlmt Xfer(QC): 6 Toilet Transfer (QC): 6 Car Transfer (QC): 9 Does the Patient Walk: No and Walking Goal IS indicated Walk 10 feet (QC): 4 (SBA) Walk 50ft with 2 Turns (QC): 4 (SBA) Walk 150 ft (QC): 4 (SBA) Walking 10ft on Uneven Surface: 9 1 Step (curb) (QC): 4 (CGA) 4 Steps (QC): 4 (CGA) 12 Steps (QC): 9 Picking up an Object (QC): 9 Does the Pt use WC or Scooter?: No Type: N/A Type: N/A PT Plan Treatment/Plan Treatment Plan: Continue Plan of Care Treatment Plan: Bed Mobility, Education, Functional Activity Ale, Functional Strength, Group Therapy, Gait, Safety, Therapeutic Exercise, Transfers Treatment Duration: Oct 19, 2019 Frequency: 11 times per week Estimated Hrs Per Day: .25 hour per day Patient and/or Family Agrees t: Yes Time/GCodes Time In: 912 Time Out: 948 Total Billed Treatment Time: 36 Total Billed Treatment 1 visit FA 22min EX 14min JOHN MUNOZ PT Oct 14, 2019 10:38 POS
[2019-10-14 11:30] VITALS: BP 150/66
== END 2019-10-14 11:30 | disposition home health service (06) | DRG 470 ==
LOC: 4TH 07:37 → SURG 07:38 → 4TH 12:51
PROVIDERS: ADMIT Orthopaedic Surgery; ATTEND Orthopaedic Surgery
PROC: 0SRD0J9 Replacement of Left Knee Joint with Synthetic Substitute, Cemented, Open Approach (ICD-10-PCS; principal; 2019-10-12 09:24)
DX: M17.12 Unilateral primary osteoarthritis, left knee (principal); I10 Essential (primary) hypertension; E03.9 Hypothyroidism, unspecified; K21.9 Gastro-esophageal reflux disease without esophagitis; E66.9 Obesity, unspecified; K52.9 Noninfective gastroenteritis and colitis, unspecified; I49.9 Cardiac arrhythmia, unspecified; Z68.33 Body mass index [BMI] 33.0-33.9, adult; Z86.79 Personal history of other diseases of the circulatory system; Z86.73 Personal history of transient ischemic attack (TIA), and cerebral infarction without residual deficits; Z87.891 Personal history of nicotine dependence
CPT/HCPCS: 36415; 73560; 85014; 85018; 86850; 86900; 86901; 94664

== ENCOUNTER 2020-04-13 09:09 | Outpatient (RCR) | payer MEDICARE, OTHER ==
[2020-04-10 09:39] VITALS: BP 159/78
[2020-04-10 10:23] LABS: BASOPHILS % (AUTO) 0 % (0-10); EOSINOPHILS # (AUTO) 0.2 10^3/uL (0.0-0.3); EOSINOPHILS % (AUTO) 3 % (0-10); HEMATOCRIT 42 % (35-52); HEMOGLOBIN 13.9 G/DL (11.5-16.0); LYMPHOCYTES # (AUTO) 2.9 X 10^3 (1.0-4.0); LYMPHOCYTES % (AUTO) 39 % (12-44); MEAN CORPUSCULAR HEMOGLOBIN 27 PG (25-34); MEAN CORPUSCULAR HGB CONC 33 G/DL (32-36); MEAN CORPUSCULAR VOLUME 83 FL (80-99); MEAN PLATELET VOLUME 10.5 FL (7.4-10.4); MONOCYTES # (AUTO) 0.5 X 10^3 (0.0-1.0); MONOCYTES % (AUTO) 7 % (0-12); NEUTROPHILS # (AUTO) 3.9 X 10^3 (1.8-7.8); NEUTROPHILS % (AUTO) 51 % (42-75); PLATELET COUNT 347 10^3/uL (130-400); RED CELL DISTRIBUTION WIDTH 15.6 % (10.0-14.5); WHITE BLOOD COUNT 7.6 10^3/uL (4.3-11.0)
[2020-04-10 10:24] LABS: BILIRUBIN,URINE NEGATIVE (NEGATIVE); CLARITY,URINE CLEAR; COLOR,URINE YELLOW; GLUCOSE, URINE (UA) NEGATIVE (NEGATIVE); KETONES,URINE NEGATIVE (NEGATIVE); LEUKOCYTE ESTERASE ,URINE NEGATIVE (NEGATIVE); NITRITE,URINE NEGATIVE (NEGATIVE); PH,URINE 6.5 (5-9); PROTEIN,URINE NEGATIVE (NEGATIVE)
[2020-04-10 10:38] LABS: BACTERIA,URINE NEGATIVE /HPF; SQUAMOUS EPITHELIAL CELL,UR 0-2 /HPF
[2020-04-10 10:45] LABS: INR 0.9 (0.8-1.4); PROTHROMBIN TIME PATIENT 12.6 SEC (12.2-14.7)
[2020-04-10 10:47] LABS: ALANINE AMINOTRANSFERASE 14 U/L (0-55); ALBUMIN 4.1 GM/DL (3.2-4.5); ALKALINE PHOSPHATASE 110 U/L (40-136); BILIRUBIN,TOTAL 0.4 MG/DL (0.1-1.0); BUN/CREATININE RATIO 14; CALCIUM 8.9 MG/DL (8.5-10.1); CARBON DIOXIDE 23 MMOL/L (21-32); CHLORIDE 109 MMOL/L (98-107); CREATININE SERUM 0.78 MG/DL (0.60-1.30); GFR ESTIMATED > 60; GLUCOSE 82 MG/DL (70-105); POTASSIUM 4.3 MMOL/L (3.6-5.0); SODIUM 142 MMOL/L (135-145); TOTAL PROTEIN 6.9 GM/DL (6.4-8.2)
[2020-04-10 10:52] LABS: ERYTHROCYTE SEDIMENTATION RATE 9 MM/HR (0-30)
[~2020-04-13] VITALS: Ht 165 cm; Wt 88.5 kg
[~2020-04-13 09:09] MED LIST changes: -ACETAMINOPHEN 325 MG TABLET PO PRN; +LOSA100T57 PO; +MULT-618 PO; -OMEP20CA13 PO; +OMEP20CA18 PO; +OMEP40CA27 PO; -OMEP40CA36 PO; +OXYC1TAB87 PO; -VERA80TA2 PO; +VERA80TA4 PO; -diphenhydrAMINE 50 MG/ML INJ (BENADRYL) IVP PRN; -morphine PCA 100 MG/100 ML BAG IV PRN
== END 2020-04-13 14:47 | disposition home or self-care (01) ==
LOC: PREOP 09:09
PROVIDERS: ATTEND Orthopaedic Surgery
DX: Z01.818 Encounter for other preprocedural examination (principal); Z01.812 Encounter for preprocedural laboratory examination; M17.11 Unilateral primary osteoarthritis, right knee; Z11.2 Encounter for screening for other bacterial diseases; Z11.59 Encounter for screening for other viral diseases
CPT/HCPCS: 36415; 80053; 81000; 85025; 85610; 85652; 86850; 86900; 86901; 87081; 87635

== ENCOUNTER 2020-04-18 08:09 | Inpatient (IN) | payer MEDICARE, OTHER ==
--- NOTE | 2020-04-10 14:16 | HISTORY AND PHYSICAL ---
DATE OF SERVICE: ADMISSION HISTORY AND PHYSICAL This will be for inpatient admission on 04/18/2020 for right total knee arthroplasty. The patient will require regular inpatient admission for pain management, need for physical therapy and comorbidities. HISTORY: The patient is a 74-year-old female with progressive worsening right knee pain. She reports progressive pain primarily laterally. Radiographs revealed severe lateral compartment arthrosis, moderate patellofemoral arthrosis and moderate medial arthrosis. She reports pain with activities. She reports no improvement with conservative measures and because of this she has elected to proceed with surgical intervention. REVIEW OF SYSTEMS: No chest pain, no shortness of breath, no dysuria. PAST MEDICAL HISTORY: Hypothyroidism, hypertension, arrhythmia, reflux, carpal tunnel. PAST SURGICAL HISTORY: ____ colon resection, bilateral carpal tunnel release, cataract removal, left total knee arthroplasty. FAMILY HISTORY: Significant for hypertension, COPD, Alzheimer's, heart disease. PRIMARY CARE PROVIDER: Nonlocal. MEDICATIONS: Levothyroxine, multivitamin, losartan, verapamil, omeprazole, turmeric, potassium, calcium. ALLERGIES: SIMVASTATIN AND LIPITOR. SOCIAL HISTORY: The patient is a former smoker. Denies alcohol use. PHYSICAL EXAMINATION: GENERAL: The patient is a well developed, well nourished, in no acute distress. HEENT: Normocephalic, atraumatic. Pupils are equal, round and reactive to light. Oropharynx is clear. NECK: Supple, no lymphadenopathy. LUNGS: Clear to auscultation bilaterally. HEART: Rate is regular rate and rhythm. ABDOMEN: Soft, nontender, nondistended. EXTREMITIES: The patient ambulates with an antalgic gait on the right. She has valgus alignment with 1+ varus laxity, no valgus laxity. Negative anterior and posterior drawer. She has patellofemoral crepitus. IMPRESSION: Severe right knee osteoarthritis, unresponsive to conservative measures. PLAN: Right total knee arthroplasty. The risks, benefits, options, ramifications and recovery were discussed at length with the patient. She understands and wishes to proceed. Job ID: [id number] DocumentID: [id number] Dictated Date: 04/09/2020 10:35:33 Automotive Specialty Technician Date: 04/09/2020 12:44:48 Dictated By: MYRIAM AVILA MD
[2020-04-18] VITALS (12 sets, daily range): BP systolic 122–188; BP diastolic 59–89
[~2020-04-18] VITALS: Ht 165 cm; Wt 88.5 kg
[~2020-04-18 08:09] MED LIST changes: +ACETAMINOPHEN 325 MG TABLET PO PRN; +ONDANSETRON 4 MG/2 ML (SDV) Z0FRAN IVP PRN; +diphenhydrAMINE 50 MG/ML INJ (BENADRYL) IVP PRN; +morphine PCA 100 MG/100 ML BAG IV PRN
[2020-04-18] MEDS ORDERED: LACTATED RINGERS 1,000 ML IV PRN (08:16)
[2020-04-18] MEDS ORDERED: ONDANSETRON 4 MG/2 ML (SDV) Z0FRAN ONE (08:26)
[2020-04-18] MEDS ORDERED: MIDAZOLAM 2 MG/2 ML (VERSED) VIAL ONE (08:26)
[2020-04-18] MEDS ORDERED: BUPIVACAINE 0.25% 30 ML (SENSORCAINE) VIAL ONE (08:26)
[2020-04-18] MEDS ORDERED: proPOfol 200 MG/20 ML (DIPRIVAN) VIAL IV ONE (08:26)
[2020-04-18] MEDS ORDERED: fentaNYL INJECTION 100 MCG/2 ML AMP ONE (08:27)
[2020-04-18] MEDS ORDERED: INTRA-ARTICULAR IU ONE ×5 (08:30)
[2020-04-18] MEDS ORDERED: CEFUROXIME INJECTION 1,500 MG in WATER (STERILE) FOR INJECTION 15 ML IV ONE (08:30)
[2020-04-18] MEDS ORDERED: SEVOFLURANE (ULTANE) 15 ML INHAL SOLN ONE ×5 (08:31→10:49)
--- OUTSIDE RECORDS SUMMARY | 2020-04-18 08:38 | XMS REPORT | Continuity of Care Document ---
Author Organization Unknown Address Unknown Phone Unavailable Allergies Active Description Code Type Severity Reaction Onset Reported/Identified Relationship to Patient Clinical Status Yes atorvastatin [id number] Drug Allergy Unknown JOINT PAIN 10/10/2019 Yes simvastatin [id number] Drug Aller gy Unknown JOINT PAIN 10/10/2019 Yes Yocaxyd-Ocw-Srj Reductase Inhibitor [id number] Drug Allergy Unknown JOINT PAIN 10/10/2019 Medications There is no data. Problems Date Dx Coded Attending Type Code Diagnosis Diagnosed By 10/10/2019 MYRIAM AVILA MD, Ot M17.12 UNILATERAL PRIMARY OSTEOARTHRITIS, LEFT 10/10/2019 MYRIAM AVILA MD, Ot Z01.812 ENCOUNTER FOR PREPROCEDURAL LABORATORY E 10/10/2019 MYRIAM AVILA MD, Ot Z01.812 ENCOUNTER FOR PREPROCEDURAL LABORATORY E 10/10/2019 MYRIAM AVILA MD, Ot Z01.812 ENCOUNTER FOR PREPROCEDURAL LABORATORY E 10/10/2019 MYRIAM AVILA MD, Ot Z01.812 ENCOUNTER FOR PREPROCEDURAL LABORATORY E 10/10/2019 MYRIAM AVILA MD, Ot Z01.812 ENCOUNTER FOR PREPROCEDURAL LABORATORY E 10/10/2019 MYRIAM AVILA MD Ot Z01.812 ENCOUNTER FOR PREPROCEDURAL LABORATORY E 10/14/2019 MYRIAM AVILA MD Ot E03.9 HYPOTHYROIDISM, UNSPECIFIED 10/14/2019 MYRIAM AVILA MD, Ot E66.9 OBESITY, UNSPECIFIED 10/14/2019 MYRIAM AVILA MD, Ot I1 0 ESSENTIAL (PRIMARY) HYPERTENSION 10/14/2019 MYRIAM AVILA MD, Ot I49.9 CARDIAC ARRHYTHMIA, UNSPECIFIED 10/14/2019 MYRIAM AVILA MD, Ot K21.9 GASTRO-ESOPHAGEAL REFLUX DISEASE WITHOUT 10/14/2019 MYRIAM AVILA MD, Ot K52.9 NONINFECTIVE GASTROENTERITIS AND COLITIS 10/14/2019 MYRIAM AVILA MD, Ot M17.12 UNILATERAL PRIMARY OSTEOARTHRITIS, LEFT 10/14/2019 MYRIAM AVILA MD, Ot Z68.33 BODY MASS INDEX (BMI) 33.0-33.9, ADULT 10/14/2019 MYRIAM AVILA MD, Ot Z86.73 PRSNL HX OF TIA (TIA), AND CEREB INFRC W 10/14/2019 MYRIAM AVILA MD, Ot Z86.79 PERSONAL HISTORY OF OTHER DISEASES OF TH 10/14/2019 MYRIAM AVILA MD, Ot Z87.891 PERSONAL HISTORY OF NICOTINE DEPENDENCE 04/12/2020 MYRIAM AVILA MD, Ot M17.11 UNILATERAL PRIMARY OSTEOARTHRITIS, RIGHT 04/12/2020 MYRIAM AVILA MD, Ot Z01.812 ENCOUNTER FOR PREPROCEDURAL LABORATORY E 04/12/2020 MYRIAM AVILA MD, Ot Z01.818 ENCOUNTER FOR OTHER PREPROCEDURAL EXAMIN Procedures Code Description Performed By Per formed On [id number] RE PLACE OF L KNEE JT WITH SYNTH SUB, [place] 10/12/2019 Results Test Result Range Erythrocyte sedimentation rate by sid gren method - 10/10/19 14:30 Erythrocyte sedimentation rate by westergren method 11 mm 0- 30 PT panel in platelet poor plasma by coag ulation assay - 10/10/19 14:30 Prothrombin time (PT) in platelet poor plasma by coagu lation assay 12.9 s 12.2-14.7 INR in platelet poor plasma or blood by coagulation as say 0.9 0.8-1.4 Blood type T Indirect antibody screen [facility] - 10/10/19 14:30 ABO+Rh group OP NRG Blood group antibody screen NEGATIVE NR G Methicillin resistant Staphylococcus aur eus (MRSA) screening culture - 10/10/19 14:30 Methicillin resistant Staphylococcus aureus (MRSA) scr eening culture NEG NRG Whole blood hemoglobin and hematocrit [facility] 10/13/19 05:39 Venous blood hemoglobin measurement (mass/volume) 11.2 g/dL 11.5-16.0 Blood hematocrit (volume fraction) 34 % 35-52 Whole blood hemoglobin and hematocrit [facility] 10/14/19 05:25 Venous blood hemoglobin measurement (mass/volume) 11.0 g/dL 11.5-16.0 Blood hematocrit (volume fraction) 34 % 35-52 Complete blood count (CBC) with automate d white blood cell (WBC) differential - 04/10/20 08:50 Blood leukocytes automated count (number/volume) 7.6 10*3/uL 4.3-11.0 Blood erythrocytes automated count (number/volume) 5.10 10*6/uL 4.35-5.85 Venous blood hemoglobin measurement (mass/volume) 13.9 g/dL 11.5-16.0 Blood hematocrit (volume fraction) 42 % 35-52 Automated erythrocyte mean corpuscular volume 83 [ foz_us] 80-99 Automated erythrocyte mean corpuscular h emoglobin (mass per erythrocyte) 27 pg 25-34 Automated erythrocyte mean corpuscular h emoglobin concentration measurement (mass/volume) 33 g/dL 32-36 Automated erythrocyte distribution width ratio 15. 6 % 10.0- 14.5 Automated blood platelet count (count/volume) 347 10*3/uL 130-400 Automated blood platelet mean volume measurement 10.5 [foz_us] 7.4-10.4 Automated blood neutrophils/100 leukocytes 51 % 42-75 Automated blood lymphocytes/100 leukocytes 39 % 12-44 Blood monocytes/100 leukocytes 7 % 0-12 Automated blood eosinophils/100 leukocytes 3 % 0-10 Automated blood basophils/100 leukocytes 0 % 0-10 Blood neutrophils automated count (number/volume) 3.9 10*3 1.8-7.8 Blood lymphocytes automated count (number/volume) 2.9 10*3 1.0-4.0 Blood monocytes automated count (number/volume) 0. 5 10*3 0.0-1.0 Automated eosinophil count 0.2 10*3/uL 0 .0-0.3 Automated blood basophil count (count/volume) 0.0 10*3/uL 0.0-0.1 Comprehensive metabolic panel - 04/10/20 08:50 Serum or plasma sodium measurement (moles/volume) 142 mmol/L 135-145 Serum or plasma potassium measurement (moles/volume) 4.3 mmol/L 3.6-5.0 Serum or plasma chloride measurement (moles/volume) 109 mmol/L 98-107 Carbon dioxide 23 mmol/L 21-32 Serum or plasma anion gap determination (moles/volume) 10 mmol/L 5-14 Serum or plasma urea nitrogen measurement (mass/volume ) 11 mg/dL 7-18 Serum or plasma creatinine measurement (mass/volume) 0.78 mg/dL 0.60-1.30 Serum or plasma urea nitrogen/creatinine mass ratio 14 NRG Serum or plasma creatinine measurement w ith calculation of estimated glomerular filtration rate > NRG Serum or plasma glucose measurement (mass/volume) 82 mg/dL 70-105 Serum or plasma calcium measurement (mass/volume) 8.9 mg/dL 8.5-10.1 Serum or plasma total bilirubin measurement (mass/volu me) 0.4 mg/dL 0.1-1.0 Serum or plasma alkaline phosphatase wanda surement (enzymatic activity/volume) 110 U/L 40-136 Serum or plasma aspartate aminotransfera se measurement (enzymatic activity/volume) 19 U/L 5-34 Serum or plasma alanine aminotransferase measurement (enzymatic activity/volume) 14 U/L 0-55 Serum or plasma protein measurement (mass/volume) 6.9 g/dL 6.4-8.2 Serum or plasma albumin measurement (mass/volume) 4.1 g/dL 3.2-4.5 CALCIUM CORRECTED 8.8 mg/dL 8.5-10.1 PT panel in platelet poor plasma by coag ulation assay - 04/10/20 08:50 Prothrombin time (PT) in platelet poor plasma by coagu lation assay 12.6 s 12.2-14.7 INR in platelet poor plasma or blood by coagulation as say 0.9 0.8-1.4 Erythrocyte sedimentation rate by sid gren method - 04/10/20 08:50 Erythrocyte sedimentation rate by westergren method 9 mm 0- 30 Blood type T Indirect antibody screen [facility] - 04/10/20 08:50 ABO+Rh group OP NRG Blood group antibody screen NEGATIVE NR G Methicillin resistant Staphylococcus aur eus (MRSA) screening culture - 04/10/20 08:50 Methicillin resistant Staphylococcus aureus (MRSA) scr eening culture NEG NRG Complete urinalysis with reflex to cultu re - 04/10/20 09:55 Urine color determination YELLOW NRG Urine clarity determination CLEAR NR G Urine pH measurement by test strip 6.5 5-9 Specific gravity of urine by test strip <= 1.016-1.022 Urine protein assay by test strip, semi-quantitative NEGATIVE NEGATIVE Urine glucose detection by automated test strip NE GATIVE NEGATIVE Erythrocytes detection in urine sediment by light micr oscopy NEGATIVE NEGATIVE Urine ketones detection by automated test strip NE GATIVE NEGATIVE Urine nitrite detection by test strip NEGATIVE NEGATIVE Urine total bilirubin detection by test strip NEGA TIVE NEGATIVE Urine urobilinogen measurement by automated test strip (mass/volume) 0.2 mg/dL < = 1.0 Urine leukocyte esterase detection by dipstick NEG ATIVE NEGATIVE Automated urine sediment erythrocyte cou nt by microscopy (number/high power field) NONE NRG Automated urine sediment leukocyte count by microscopy (number/high power field) NONE NRG Bacteria detection in urine sediment by light microsco py NEGATIVE NRG Squamous epithelial cells detection in u rine sediment by light microscopy 0-2 NRG Crystals detection in urine sediment by light microsco py NONE NRG Casts detection in urine sediment by light microscopy NONE NRG Mucus detection in urine sediment by light microscopy NEGATIVE NRG Complete urinalysis with reflex to culture NO NRG Coronavirus SARS-CoV-2 SO 2018 0 14:13 Coronavirus Ab [Units/volume] in Serum Negative Negative Encounters ACCT No. Visit Date/Time Discharge Status Pt. Type Provider Facility Loc./Unit Complaint [id number] 04/13/2020 09:09:00 020 14:47:00 DIS Outpatient MYRIAM AVILA MD Via [facility] PREOP RIGHT TKR [id number] 10/12/2019 07:37:00 019 11:30:00 DIS Inpatient MYRIAM AVILA MD [facility] 4TH OSTEOARTHRITIS LEFT KNE E [id number] 10/10/2019 13:45:00 14:40:00 DIS Outpatient MYRIAM AVILA MD [facility] PREOP LEFT KNEE OSTEOARTHRIT IS [id number] 04/18/2020 08:09:[address] Inpatient MYRIAM AVILA MD [facility] SURG RIGHT KNEE DJD
[2020-04-18] MEDS ORDERED: CATHETER FLUSH 10 ML SYR IV PRN (08:45)
--- NOTE | 2020-04-18 09:11 | Progress Note-Pre Operative ---
Pre-Operative Progress Note H&P Reviewed The H&P was reviewed, patient examined and no changes noted. Date Seen by Provider: April 18, 2020 Time Seen by Provider: 09:11 Date H&P Reviewed: April 18, 2020 Time H&P Reviewed: 09:11 Pre-Operative Diagnosis: right knee primary osteoarthritis MYRIAM AVILA MD April 18, 2020 09:11
--- NOTE | 2020-04-18 09:12 | Progress Note-Post Operative ---
Post-Operative Progess Note Surgeon (s)/Science Specialist (s) Surgeon MYRIAM AVILA MD Science Specialist: Evangelist Wilson Pre-Operative Diagnosis right knee primary osteoarthritis Post-Operative Diagnosis right knee primary osteoarthritis Procedure & Operative Findings Date of Procedure 04/18/20 Procedure Performed/Findings right total knee arthroplasty Anesthesia Type GETA Estimated Blood Loss Estimated blood loss (mL): minimal Specimens/Packing Specimens Removed none Packing: none MYRIAM AVILA MD April 18, 2020 09:12
[2020-04-18] MEDS ORDERED: OXYC1TAB87 PO (09:15)
--- NOTE | 2020-04-18 09:18 | D/C HH Face to Face Order ---
D/C Face to Face Orders Reconcile Patient Problems Problems Reviewed?: Yes Instructions for Patient [facility], Patient Instructions/FollowUp: three weeks Physician to follow Patient: three weeks Discharge Diet for Home: Regular Diet Patient Data-Allergies,Ht & Wt Patient Allergies: Coded Allergies: atorvastatin (Verified Allergy, Unknown, JOINT PAIN, 10/10/19) simvastatin (Verified Allergy, Unknown, JOINT PAIN, 10/10/19) Home Health Need/Face to Face Date of Face to Face: April 18, 2020 Clinical Findings: Instability, Muscle weakness, Pain with ambulation, Unsteady gait I have seen Pt [id number]-rx-[id number]: Yes Discharged To: Home Diagnosis/Conditions: left total knee arthroplasty Patient is Homebound due to: Muscle weakness, Pain w/ambulation Homebound Status Due to the above stated illness, injury or surgical procedure (medical condition or diagnosis) and associated clinical findings, the patient is homebound because of his/her inability to leave home except with aid of a supportive device and/or person AND leaving the home requires a considerable and taxing effort or is medically contraindicated. Pt req the following assistanc: [facility] Nursing Orders Home Health Services Order: Physical Therapy-Evaluate & Treat DC knee belia 05/02/20 Home Health Infusion Therapy Line Start Date: April 18, 2020 Therapy Orders Therapy Orders: Physical Therapy, PT to assess for OT Therapy Specific Orders: Eval assistive deivces, Teach enviro modifications/safety, Gait training, Increase strength/endurance, Provider maintenance therapy, Restore ROM Certify Stmt I certify that this patient is under my care and that I, a nurse practitioner or a physician; a orthotics prosthetics assistant working with me, had a face to face encounter that -nichol salbador the physician face to face encounter requirements with this patient as dated. MYRIAM AVILA MD April 18, 2020 09:18
[2020-04-18] MEDS ORDERED: LIDOCAINE PF 2% 5 ML (XYLOCAINE) VIAL ONE (10:36)
[2020-04-18] MEDS ORDERED: HYDROmorphone 2 MG/ML VIAL (DILAUDID) ONE (10:58)
[2020-04-18] MEDS ORDERED: PROMETHAZINE INJ 25 MG/ML (PHENERGAN) AMP IVP ONE (11:15)
[2020-04-18] MEDS ORDERED: ONDANSETRON 4 MG/2 ML (SDV) Z0FRAN IVP PRN (11:15)
[2020-04-18] MEDS ORDERED: HYDROmorphone 2 MG/ML VIAL (DILAUDID) IV ONE (11:15)
[2020-04-18] MEDS ORDERED: MEPERIDINE (DEMEROL) INJ 50 MG/ML IVP ONE (11:15)
[2020-04-18] MEDS ORDERED: morphine INJ 10 MG/ML 1ML (SYR OR VIAL) IVP ONE (11:15)
--- NOTE | 2020-04-18 11:18 | Diagnostic Imaging Report ---
EXAMINATION: Right knee in OR at 1106h. INDICATION: Postop AP and lateral views were received from the OR. There are no prior studies for comparison. There is a total knee prosthesis in place. The prosthetic components appear to be in good position. There is no fracture or acute bony abnormality evident. There is gas in the soft tissues about the knee joint. Skin belia are also seen along the anterior aspect of the knee joint. There is an external support device in place as well. IMPRESSION: Stable postoperative right knee. Dictated by: Dictated on workstation # [id number]
--- NOTE | 2020-04-18 11:55 | NUR ---
REPORT RECEIVED AT BEDSIDE FROM MEENU MARTELL
[2020-04-18] MEDS: SENNA W/DOCUSATE (SENOKOT S) TABLET PO SCH ×2 (12:17→20:42)
[2020-04-18] MEDS ORDERED: morphine PCA 100 MG/100 ML BAG IV ONE (12:35)
[2020-04-18] MEDS ORDERED: NS IV 1000 ML 1,000 ML ONE (12:35)
[2020-04-18] MEDS: NS IV 1000 ML 1,000 ML IV SCH ×2 (12:47→22:06)
[2020-04-18] MEDS ORDERED: NALOXONE 0.4 MG/ML 1 ML (NARCAN) VIAL ONE (13:51)
--- NOTE | 2020-04-18 13:56 | Progress Note ---
Standard Progress Note Progress Notes/Assess & Plan Date Seen by a Provider: April 18, 2020 Time Seen by a Provider: 13:54 Progress/Assessment & Plan post op check no complaints Radiographs--HW well positioned without fracture RLE--2 plus DP pulse with brisk cap refill. Intact sensation throughout. intact DF and PF of toes and ankle. s/p RTKA mobilize as able MYRIAM AVILA MD April 18, 2020 13:56
--- NOTE | 2020-04-18 14:11 | NUR ---
DR AVILA NOTIFIED OF PT COMPLAINING OF SOB AND "FEELS LIKE MY THROAt is closing off". ELECTROCARDIOGRAPH OPERATOR MORPHINE STOPPED PRIOR TO NOTIFYING PHYSICIAN . ELECTROCARDIOGRAPH OPERATOR BEING CHANGED TO DILAUDED. WILL CONTINUE TO MONITOR
--- NOTE | 2020-04-18 14:27 | Physical Therapy Evaluation ---
PT Evaluation-General Medical Diagnosis Admission Date April 18, 2020 at 08:09 Medical Diagnosis: right TKA Onset Date: April 18, 2020 Therapy Diagnosis Therapy Diagnosis: impaired mobility, strength, endurance, ROM Precautions Precautions/Isolations: Standard Precautions Weight Bear Status Right Lower Extremity: Right Weight Bearing/Tolerated Referral Physician: Steve Reason for Referral: Evaluation/Treatment Medical History Additional Medical History PAST MEDICAL HISTORY: Hypothyroidism, hypertension, arrhythmia, reflux, carpal tunnel. PAST SURGICAL HISTORY: ____ colon resection, bilateral carpal tunnel release, cataract removal, left total knee arthroplasty. Reviewed History: Yes Social History Home: Single Level Current Living Status: Spouse Entry Into Home: Stairs Without Railing PT Steps Into Home: 3 Prior Prior Level of Function SCALE: Activities may be completed with or without assistive devices. 4-Wmdlxccpkb-xkwraik completes the activity by him/herself with no assistance from a helper. 5-Set-up or Clean-up Assistance-helper sets up or cleans up; patient completes activity. [place] assists only prior to or following the activity. 4-Supervision or Touching Assistance-helper provides verbal cues and/or touching/steadying and/or contact guard assistance as patient completes activity. Assistance may be provided throughout the activity or intermittently. 3-Partial/Moderate Assistance-helper does LESS THAN HALF the effort. [place] lifts, holds or supports trunk or limbs, but provides less than half the effort. 2-Substantial/Maximal Assistance-helper does MORE THAN HALF the effort. [place] lifts or holds trunk or limbs and provides more than half the effort. 7-Weqosgpdm-tmydol does ALL the effort. Patient does none of the effort to complete the activity. Or, the assistance of 2 or more helpers is required for the patient to complete the activity. If activity was not attempted, code reason: 7-Patient Refused. 9-Not Applicable-not attempted and the patient did not perform the activity before the current illness, exacerbation or injury. 10-Not Attempted due to Environmental Limitations-(lack of equipment, weather restraints, etc.). 88-Not Attempted due to Medical Conditions or Safety Concerns. Bed Mobility: 6 Transfers (B,C,W/C): 6 Gait: 6 Stairs: 6 Indoor Mobility (Ambulation): Independent Stairs: Independent PT Evaluation-Current Subjective Patient in bed pre tx, agrees to PT, has no complaints of pain. Pt/Family Goals to be independent at home Objective Patient Orientation: Person, Place, Situation Attachments: IV ROM/Strength ROM Lower Extremities right knee flexion 75 degrees, extension 10 degrees Sensory Hearing: Functional Sensation Right Lower Extremit: Impaired Sensation Left Lower Extremity: Intact Sensation Lower Extremities Patient still has some numbness below right knee but has intact light touch sensation in foot. Transfers Roll Left to Right (QC): 6 Sit to Lying (QC): 4 Lying to Sitting/Side of Bed(Q: 4 Patient sits on the side of the bed, is a little light headed, that clears after a few moments. Then suddenly patient has trouble breathing, is making choking/difficulty breathing noises, patient is layed down immediately, nurse is just outside the door, she is notified immediately and she and other nurses come in immediately to assess patient. Balance Sitting Static: Normal Sitting Dynamic: Normal Treatment Supine total knee protocol x10 (AP, QS, HS, SAQ, SLR), CPM donned and set to 60/-2 and adjusted to patient's leg. Assessment/Needs Patient has impaired mobility, strength, endurance, ROM post right TKA. Patient in bed post tx with nurse call, phone, tulio, SCD's on, polar care on, CPM on. Rehab Potential: Fair PT Product Safety Associate Goals Detention Goals PT Detention Goals Time Frame: Apr 25, 2020 Roll Left & Right (QC): 6 Sit to Lying (QC): 6 Lying-Sitting on Side/Bed(QC): 6 Sit to Stand (QC): 4 Chair/Kji-os-Etwvb Xfer(QC): 4 Walk 10 feet (QC): 4 Walk 50ft with 2 Turns (QC): 4 Walk 150 ft (QC): 4 1 Step (curb) (QC): 4 4 Steps (QC): 4 PT Plan Problem List Problem List: Activity Tolerance, Functional Strength, Safety, Balance, Gait, Transfer, Bed Mobility, ROM Treatment/Plan Treatment Plan: Continue Plan of Care Treatment Plan: Bed Mobility, Education, Functional Activity Ale, Functional Strength, Gait, Safety, Therapeutic Exercise, Transfers Treatment Duration: Apr 25, 2020 Frequency: 11 times per week Estimated Hrs Per Day: .25 hour per day Patient and/or Family Agrees t: Yes Safety Risks/Education Patient Education: Transfer Techniques, Correct Positioning, Safety Issues Teaching Recipient: Patient Teaching Methods: Demonstration, Discussion Response to Teaching: Reinforcement Needed Discharge Recommendations Plan Patient will perform bed mobility and transfer training, balance and endurance training, functional strengthening, stair training, gait training, and education, to improve functional mobility and independence at home. Therapy Discharge Recommendati: Home & Family Time/GCodes Time In: 1340 Time Out: 1406 Total Billed Treatment Time: 26 Total Billed Treatment 1 visit DILIAM 15' EX 11' HORACIO PEDROZA PT April 18, 2020 14:27
[2020-04-18] MEDS ORDERED: HYDROmorphone PF INJECTION 20 MG in NS (IVPB) 100 ML IV SCH (14:30)
--- NOTE | 2020-04-18 14:41 | NUR ---
93ML MORPHINE WASTED WITH REYES MARTELL
--- NOTE | 2020-04-18 15:38 | OPERATIVE REPORT ---
DATE OF SERVICE: 04/18/2020 PREOPERATIVE DIAGNOSIS: Right knee primary osteoarthritis. POSTOPERATIVE DIAGNOSIS: Right knee primary osteoarthritis. PROCEDURE PERFORMED: Right total knee arthroplasty. SURGEON: Santo Avila MD. ICE HANDLER: Evangelist Wilson, who assisted throughout the procedure and closed the incision. ANESTHESIA: General endotracheal by Alex Peoples CRNA. TOURNIQUET TIME: 63 minutes at 300 mmHg. ESTIMATED BLOOD LOSS: Minimal. DRAINS: None. COMPLICATIONS: None. POSTOPERATIVE PLAN: Routine protocol. The patient was transferred to the recovery room awake and in stable condition. MATERIALS: Microport cemented size 5 femur, cemented size 5 tibia with 10 mm insert and cemented size 35 patellar button. STATEMENT OF MEDICAL NECESSITY: The patient is a 74-year-old female with longstanding progressive right knee pain. Radiographs revealed severe lateral and patellofemoral arthrosis. She had undergone treatment with injections, rest, activity modifications and physical therapy without relief and due to functional impairment and failure to improve with the conservative measures, the patient elected to proceed with surgical intervention. DESCRIPTION OF PROCEDURE: After risks and benefits of the procedure were discussed and questions were answered, an informed consent was signed and placed on the chart. The operative site was confirmed in the preoperative holding area initialed by the surgeon. The patient was then transferred to the operating room and after adequate levels of general endotracheal anesthetic were obtained, a timeout was called, confirming the operative site. The right lower extremity was then prepped and draped in the usual sterile fashion with the leg elevated and the knee flexed. The tourniquet was inflated to 300 mmHg. Standard anterior approach was utilized. Hemostasis was obtained with cautery. A medial parapatellar arthrotomy was performed leaving 1 cm cuff on the patella for later reattachment. A portion of the fat pad was resected. The ACL was resected. The intramedullary guide was passed into the femur. The distal cutting block was placed and distal cut was made. The femur was sized to a size 5, the 5 cutting block was placed parallel to the epicondylar axis and cuts were made from the posterior to anterior. The subperiosteal release was then carefully performed on posterior distal femur being careful to stay on the bony surface. Intramedullary guide was then passed into the tibia. The cutting block was placed. The drop servando transected the intermalleolar axis and the cut was made. The #5 baseplate was placed and felt to be in excellent position with the drop servando. This was then pinned into position and prepared with a drill and keel punch. The femoral trial was placed and the trochlear cut was made. The patella was then prepared by resecting 10 mm off the undersurface using the freehand technique. The peg guide was placed and the peg holes were drilled. The #35 button was placed. A 10 mm insert was placed on the tibia. Full extension was easily obtained and 120 degrees of flexion with gravity was easily obtained. The patella tracked well. There was no anterior/posterior or medial/lateral laxity in the flexion or extension. The trials were removed. The joint was irrigated with pulse lavage. The periarticular block was placed in the posterior capsule, medial and lateral retinaculum extensor mechanism and subcutaneous tissues. The bone ends were irrigated and dried. The tibial baseplate was cemented into position. Excessive cement was removed. The superior surface was irrigated and dried and a polyethylene insert was placed. The distal femur was irrigated and dried and the femoral prosthesis was cemented into position. Excessive cement was removed. The knee was brought out into full extension until the cement had cured. The undersurface of the patella was irrigated and dried. The patellar button was cemented into position. Once the cement had cured, the knee was taken through range of motion. Full extension was easily obtained and 120 degrees of flexion with gravity was easily obtained. The patella tracked well. There was no anterior/posterior or medial/lateral laxity in the flexion or extension. The arthrotomy was closed with #2 Tevdek in a duachj-qc-yxuyf interrupted fashion. The knee was then flexed and the patella tracked well with no undue tension at the repair site. The subcutaneous tissues were irrigated copiously using a total of 6 liters throughout the procedure. A 0 Vicryl was used for deep subcutaneous tissue, 2-0 Vicryl for the superficial subcutaneous tissue and the belia were used on the skin. A soft dressing was applied. The tourniquet was deflated and the patient was transferred to the recovery room awake and in a stable condition. Job ID: [id number] DocumentID: [id number] Dictated Date: 04/18/2020 11:05:10 Surveyor Geod[employer] Date: 04/18/2020 15:38:10 Dictated By: SANTO AVILA MD
--- NOTE | 2020-04-18 16:00 | NUR ---
YAN FONSECA demonstrates understanding of discharge instructions and accurately returns instructions upon questioning. Copy of Post-Discharge Instructions and Medication Discharge Instructions given to PT. YAN FONSECA is able to manage continuing needs after discharge. Patients belongings returned to PT. Skin dry and intact; no breakdown noted. Patient discharged from 416-1 on at 1600 . YAN FONSECA left floor via WC, accompanied by STAFF. Addendum: 04/18/20 at 1646 by FRAN MONGE RN DISREGARD, NOTE CHARTED ON WRONG PT
--- NOTE | 2020-04-18 16:46 | Consultation - Hospitalist ---
HPI History of Present Illness: HPI/Chief Complaint Ju Sin is a 74-year-old female with past medical history of hypertension, hypothyroidism, GERD, osteoarthritis, who presented for a right total knee arthroplasty. Hospitalist service has been consulted for medical comanagement. She underwent her procedure today and is doing well postoperatively. She has no complaints or concerns at this time. She denies any fevers or chills. She denies any chest pain or shortness of breath. She denies any cough. She denies any abdominal pain, nausea, vomiting, constipation, or diarrhea. She denies any dysuria. She denies any rash. Source: patient Exam Limitations: no limitations Date Seen 04/18/20 Attending Physician Santo Atkins MD PCP No,Local Physician Referring Physician Date of Admission April 18, 2020 at 08:09 Home Medications & Allergies Home Medications Reviewed patient Home Medication Reconciliation performed by pharmacy medication reconciliations electronics maintenance technician and/or nursing. Patients Allergies have been reviewed. Allergies Allergies Coded Allergies atorvastatin (Verified Allergy, Unknown, JOINT PAIN, 10/10/19) simvastatin (Verified Allergy, Unknown, JOINT PAIN, 10/10/19) Past Zroavew-Uxjzrt-Efouyl Hx Past Med/Social Hx: Reviewed Nursing Past Med/Soc Hx Patient Social History Alcohol Use: Denies Use Recreational Drug Use: No Former Smoker, Quit: Oct 10, 1974 Physical Abuse Screen: No Sexual Abuse: No Recent Foreign Travel: No Contact w/other who traveled: No Recent Hopitalizations: No Recent Infectious Disease Expo: No Immunizations Up To Date Date of Influenza Vaccine: Aug 17, 2019 Seasonal Allergies Seasonal Allergies: No Past Medical History Surgeries: Orthopedic Currently Using CPAP: No Currently Using BIPAP: No Cardiac: Hypertension Sexually Transmitted Disease: No HIV/AIDS: No Gastrointestinal: Gastroesophageal Reflux, Chronic Diarrhea Musculoskeletal: Arthritis Endocrine: Hypothyroidsim History of Blood Disorders: No Adverse Reaction to Blood [place]: No (N/A) Family History Alzheimer's disease 19 MOTHER Completed stroke G8 SISTER Drug abuse G8 BROTHER Parkinson's disease G8 SISTER Respiratory disorder 19 FATHER Review of Systems Constitutional: no symptoms reported EENTM: no symptoms reported Respiratory: no symptoms reported Cardiovascular: no symptoms reported Gastrointestinal: no symptoms reported Genitourinary: no symptoms reported Musculoskeletal: no symptoms reported Skin: no symptoms reported Psychiatric/Neurological: No Symptoms Reported Physical Exam Physical Exam Vital Signs Vital Signs - First Documented 04/18/20 08:15 Temp 36.3 Pulse 70 Resp 20 B/P (MAP) 188/81 Pulse Ox 98 Capillary Refill : Less Than 3 SecondsLess Than 3 Seconds Height, Weight, BMI Height: '" Weight: lbs. oz. kg; 32.50 BMI Method: General Appearance: No Apparent Distress, WD/WN HEENT: PERRL/EOMI, Pharynx Normal Neck: Normal Inspection, Supple Respiratory: Lungs Clear, Normal Breath Sounds, No Respiratory Distress Cardiovascular: Regular Rate, Rhythm, No Edema, No Murmur Gastrointestinal: Normal Bowel Sounds, Non Tender, Soft Extremity: Non Tender, No Pedal Edema, Other (right knee immobilizer in place) Neurologic/Psychiatric: Alert, Oriented x3, Normal Mood/Affect Skin: Normal Color, Warm/Dry Results Results/Procedures Labs Laboratory Tests 04/19/20 04:50 Patient resulted labs reviewed. Imaging: Reviewed Imaging Report Assessment/Plan Assessment and Plan Assess & Plan/Chief Complaint Osteoarthritis of right knee Status post total knee arthroplasty Orthopedic Surgery primary Pain regimen ordered Bowel regimen ordered Incentive spirometer PT/OT Hypertension Hypothyroidism GERD Continue home meds DVT prophylaxis: Lovenox Diagnosis/Problems Diagnosis/Problems (1) Osteoarthritis of right knee Status: Acute Qualifiers: Osteoarthritis type: primary Qualified Codes: M17.11 - Unilateral primary osteoarthritis, right knee (2) S/P total knee arthroplasty Status: Acute Qualifiers: Laterality: right Qualified Codes: Z96.651 - Presence of right artificial knee joint (3) HTN (hypertension) Status: Chronic Qualifiers: Hypertension type: essential hypertension Qualified Codes: I10 - Essential (primary) hypertension (4) Hypothyroidism Status: Chronic Qualifiers: Hypothyroidism type: unspecified Qualified Codes: E03.9 - Hypothyroidism, unspecified (5) GERD (gastroesophageal reflux disease) Status: Chronic Qualifiers: Esophagitis presence: esophagitis presence not specified Qualified Codes: K21.9 - Gastro-esophageal reflux disease without esophagitis BRYNN VERDE MD April 18, 2020 16:46
[2020-04-18] MEDS: CEFUROXIME INJECTION 750 MG in WATER (STERILE) FOR INJECTION 10 ML IV SCH (17:17)
[2020-04-19] VITALS: BP 138/62
[2020-04-19] MEDS: CEFUROXIME INJECTION 750 MG in WATER (STERILE) FOR INJECTION 10 ML IV SCH (00:24)
[2020-04-19] MEDS: NS IV 1000 ML 1,000 ML IV SCH ×2 (03:21→15:04)
[2020-04-19 04:00] VITALS: BP 139/63
[2020-04-19 05:14] LABS: HEMOGLOBIN 11.9 G/DL (11.5-16.0)
[2020-04-19] MEDS ORDERED: LEVOTHYROXINE 50 MCG (LEVOTHROID) TAB PO ONE (06:30)
[2020-04-19] MEDS ORDERED: PATIENT MAY USE OWN MEDS, ALL MC SCH (07:45)
[2020-04-19] MEDS: LEVOTHYROXINE 50 MCG (LEVOTHROID) TAB PO SCH ×2 (07:57→08:07)
[2020-04-19] MEDS: Omeprazole 40 MG PO SCH (07:57)
[2020-04-19] MEDS: LOSARTAN 100 MG (COZAAR) TABLET PO SCH (07:57)
[2020-04-19] MEDS: VERAPAMIL HCL 40 MG PO SCH (07:57)
[2020-04-19 08:00] VITALS: BP 123/72
--- NOTE | 2020-04-19 08:00 | Progress Note ---
Standard Progress Note Progress Notes/Assess & Plan Date Seen by a Provider: April 19, 2020 Time Seen by a Provider: 07:59 Progress/Assessment & Plan post op check no complaints Radiographs--HW well positioned without fracture RLE--2 plus DP pulse with brisk cap refill. Intact sensation throughout. intact DF and PF of toes and ankle. s/p RTKA mobilize as able Final Diagnosis no complaints Vital Signs Date Time Temp Pulse Resp B/P (MAP) Pulse Ox O2 Delivery O2 Flow Rate FiO2 04/19/20 04:00 36.6 67 18 139/63 (88) 98 Nasal Cannula 3.00 04/19/20 00:00 36.7 70 19 138/62 (87) 100 Nasal Cannula 3.00 04/18/20 20:45 98 Nasal Cannula 2.00 04/18/20 19:15 36.0 70 15 124/60 (81) 98 Nasal Cannula 3.00 04/18/20 15:52 36.0 61 20 130/59 (82) 98 Nasal Cannula 1.50 04/18/20 14:30 Nasal Cannula 2.00 04/18/20 14:27 96 Nasal Cannula 2.00 04/18/20 14:04 35.7 73 19 128/82 (97) Nasal Cannula 2.00 99.00 04/18/20 11:55 Room Air 04/18/20 11:55 36.1 20 140/60 (86) 96 Room Air 04/18/20 11:45 Room Air 04/18/20 11:40 20 140/60 (86) 97 Room Air 04/18/20 11:30 OxyMask 3 04/18/20 11:30 20 149/89 (109) 100 OxyMask 3 04/18/20 11:20 20 163/62 (95) 100 OxyMask 5 04/18/20 11:15 OxyMask 5 04/18/20 11:10 20 162/67 (98) 100 OxyMask 5 04/18/20 11:00 OxyMask 5 04/18/20 11:00 20 122/86 (98) 100 OxyMask 5 04/18/20 10:58 OxyMask 5 04/18/20 10:58 36.1 20 136/82 (100) 100 OxyMask 5 04/18/20 08:15 36.3 70 20 188/81 98 I & O 04/19/20 07:00 Intake Total 2475 ml Output Total 275 ml Balance 2200 ml Laboratory Tests Test 04/19/20 04:50 Range/Units Hemoglobin 11.9 11.5-16.0 G/DL Hematocrit 37 35-52 % RLE--dressing intact. NVI distally. No calf tenderness s/p RTKA doing well continue PT/OT MYRIAM AVILA MD April 19, 2020 08:00
[2020-04-19] MEDS: ASPIRIN E.C. 81 MG (ECOTRIN) TAB PO SCH (08:02)
[2020-04-19] MEDS: SENNA W/DOCUSATE (SENOKOT S) TABLET PO SCH ×2 (08:02→20:10)
[2020-04-19] MEDS: oxyCODONE/APAP 5/325MG (PERCOCET 5) TABLET PO PRN ×6 (08:02→20:21)
[2020-04-19] MEDS: ENOXAPARIN 30 MG/0.3 ML (LOVENOX) SYR SC SCH ×2 (08:05→20:10)
[2020-04-19] MEDS: MULTIVIT W/MINERALS TAB (THERAGRAN M) PO SCH (08:06)
[2020-04-19] MEDS ORDERED: PANTOPRAZOLE 40 MG (PROTONIX) TAB PO SCH (09:00)
[2020-04-19] MEDS ORDERED: LOSARTAN 100 MG (COZAAR) TABLET PO SCH (09:00)
--- NOTE | 2020-04-19 09:24 | Occupational Therapy Eval ---
OT Evaluation-General/PLF Medical Diagnosis Admission Date April 18, 2020 at 08:09 Medical Diagnosis: right TKA Onset Date: April 18, 2020 Therapy Diagnosis Therapy Diagnosis: Decreased ADL skills Precautions Precautions/Isolations: Standard Precautions Weight Bear Status Weight Bearing Restriction: Weight Bearing/Tolerated Referral Physician: Milly Referral Reason: Activity Tolerance, Self Care, Evaluation/Treatment, Strengthening/ROM Medical History Pertinent Medical History: HTN Additional Medical History Hypothyroidism, Carpal tunnel, colon resection, Bilateral CTR, Left knee replacement. Reviewed History: Yes Social History Home: Single Level Current Living Status: Spouse Entry Into Home: Stairs Without Railing Steps Into Home: 3 ADL-Prior Level of Function SCALE: Activities may be completed with or without assistive devices. 3-Jdvpmqukhj-vnpizpd completes the activity by him/herself with no assistance from a helper. 5-Set-up or Clean-up Assistance-helper sets up or cleans up; patient completes activity. [place] assists only prior to or following the activity. 4-Supervision or Touching Assistance-helper provides verbal cues and/or touching/steadying and/or contact guard assistance as patient completes activity. Assistance may be provided throughout the activity or intermittently. 3-Partial/Moderate Assistance-helper does LESS THAN HALF the effort. [place] lifts, holds or supports trunk or limbs, but provides less than half the effort. 2-Substantial/Maximal Assistance-helper does MORE THAN HALF the effort. [place] lifts or holds trunk or limbs and provides more than half the effort. 2-Spmfxcerz-dtevjo does ALL the effort. Patient does none of the effort to complete the activity. Or, the assistance of 2 or more helpers is required for the patient to complete the activity. If activity was not attempted, code reason: 7-Patient Refused. 9-Not Applicable-not attempted and the patient did not perform the activity before the current illness, exacerbation or injury. 10-Not Attempted due to Environmental Limitations-(lack of equipment, weather restraints, etc.). 88-Not Attempted due to Medical Conditions or Safety Concerns. ADL PLOF Comments Pt. was independent with daily skills. Self Care: Independent Functional Cognition: Independent DME/Equipment: Bath Chair, Grab Bars, Shower, Tall Toilet DME/Equipment Comments Pt. has walker, cane, and her spouse's hip kit if needed. Pt. also has modified her bed to be closer to ground, as she had other knee recently replaced. Drive Self: Yes OT Current Status Subjective No pain reported. Appearance Pt. up in chair. Agrees to work with OT. Mental Status/Objective Patient Orientation: Person, Place, Time, Situation Attachments: IV Current Upper Extremity ROM WFL ADL-Treatment Eating (QC): 6 Shower/Bathe Self (QC): 7 On/Off Footwear (QC): 5 Toileting Hygiene (QC): 4 (SBA per pt. and PT) Other Treatments Pt. is up in chair. OT talks with her regarding OT goals and goals of independence. Pt. reports that she has recently had other knee replaced, and has just been through this. Her spouse has a hip kit, and she is aware of how to use it if she needs. Also reports spouse can assist as needed. Pt. is able to stand with SBA at chair side. Pt. declines bathing as she showered well yesterday. PT reports pt. toileted already with no difficulty, and pt. verbalizes this as well. Pt. bent over to doff/don slipper socks. Pt. able to do so, but became nauseated and began to throw up in trash can. Nursing notified immediately and brought in medication. Pt. given sprite and crackers for upset stomach. Pt. reports that she feels better. Does not feel she needs OT services at this time due to support system, current ability, and knowledge of other knee replacement. OT will discharge at this time. Education OT Patient Education: Correct positioning, Modified ADL techniques, Progress toward Goal/Update tx plan, Purpose of tx/functional activities, Reviewed preca utions, Rehab process, Transfer techniques Teaching Recipient: Patient Teaching Methods: Demonstration, Discussion Response to Teaching: Verbalize Understanding, Return Demonstration OT Executive Admin Goals [facility] Goals Time Frame: April 19, 2020 Additional Goals: 1-Demonstrate ADL Tasks, 2-Verbalize Understanding 1=Demonstrate adherence to instructed precautions during ADL tasks. 2=Patient will verbalize/demonstrate understanding of assistive devices/modifications for ADL. 3=Patient will improve strength/tolerance for activity to enable patient to perform ADL's. OT Education/Plan Problem List/Assessment Assessment: No Skilled OT Needs ID'd Discharge Recommendations Plan/Recommendations: Discontinue OT Therapy Discharge Recommendati: Home & Family Comment Pt. reports that she has all needed equipment at home. Treatment Plan/Plan of Care Treatment,Training & Education: Yes Patient would benefit from OT for education, treatment and training to promote independence in ADL's, mobility, safety and/or upper extremity function for ADL's. Plan of Care: OTHER (No further OT warranted at this time.) Treatment Duration: April 19, 2020 Frequency: 1 time per week Estimated Hrs Per Day: .25 hour per day Agreement: Yes Rehab Potential: Good Time/GCodes Start Time: 08:35 Stop Time: 08:55 Total Time Billed (hr/min): 20 Billed Treatment Time 1, EVL Discharge pt. at this time. Thank you for this referral. TONY DUMONT OT April 19, 2020 09:24
--- NOTE | 2020-04-19 10:01 | Physical Therapy Daily Note ---
PT Daily Note-Current Subjective Patient agrees to PT. Pain Numeric Pain Scale: 5-Moderate Pain Location: Right Location Body Site: Knee Pain Description: Acute Mental Status Patient Orientation: Normal For Age Attachments: IV Transfers SCALE: Activities may be completed with or without assistive devices. 9-Ybaxylyvuj-ysfgwib completes the activity by him/herself with no assistance from a helper. 5-Set-up or Clean-up Assistance-helper sets up or cleans up; patient completes activity. [place] assists only prior to or following the activity. 4-Supervision or Touching Assistance-helper provides verbal cues and/or touching/steadying and/or contact guard assistance as patient completes activity. Assistance may be provided throughout the activity or intermittently. 3-Partial/Moderate Assistance-helper does LESS THAN HALF the effort. [place] lifts, holds or supports trunk or limbs, but provides less than half the effort. 2-Substantial/Maximal Assistance-helper does MORE THAN HALF the effort. [place] lifts or holds trunk or limbs and provides more than half the effort. 7-Ipfvndkwc-xjwmah does ALL the effort. Patient does none of the effort to complete the activity. Or, the assistance of 2 or more helpers is required for the patient to complete the activity. If activity was not attempted, code reason: 7-Patient Refused. 9-Not Applicable-not attempted and the patient did not perform the activity before the current illness, exacerbation or injury. 10-Not Attempted due to Environmental Limitations-(lack of equipment, weather restraints, etc.). 88-Not Attempted due to Medical Conditions or Safety Concerns. Sit to Stand (QC): 4 Toilet Transfer (QC): 4 Weight Bearing Right Lower Extremity: Right Weight Bearing/Tolerated Gait Training Does the Patient Walk?: Yes Distance: 150' Walk 10 feet (QC): 4 Walk 50 ft with 2 Turns(QC): 4 Walk 150 ft (QC): 4 Gait Assistive Device: FWW slow, antalgic, step to gait sequence Exercises Supine Ex: Ankle pumps, Quad Set, Heel Slides Supine Reps: 12 (in recliner) Seated Therapy Exercises: Ankle pumps, Long arc quads Seated Reps: 15 Assessment Patient reports CPM was on all night and she remains up in recliner. Patient tolerated treatment well and will dismiss to home tomorrow. PT Skilled Nursing Goals Skilled Nursing Goals PT Skilled Nursing Goals Time Frame: Apr 25, 2020 Roll Left & Right (QC): 6 Sit to Lying (QC): 6 Lying-Sitting on Side/Bed(QC): 6 Sit to Stand (QC): 4 Chair/Fie-hm-Nqmvy Xfer(QC): 4 Walk 10 feet (QC): 4 Walk 50ft with 2 Turns (QC): 4 Walk 150 ft (QC): 4 1 Step (curb) (QC): 4 4 Steps (QC): 4 PT Plan Treatment/Plan Treatment Plan: Continue Plan of Care Treatment Plan: Bed Mobility, Education, Functional Activity Ale, Functional Strength, Gait, Safety, Therapeutic Exercise, Transfers Treatment Duration: Apr 25, 2020 Frequency: 11 times per week Estimated Hrs Per Day: .25 hour per day Patient and/or Family Agrees t: Yes Time/GCodes Time In: 812 Time Out: 836 Total Billed Treatment Time: 24 Total Billed Treatment 1 visit GT 14 min EX 10 min JOHN MUNOZ PT April 19, 2020 10:01
--- NOTE | 2020-04-19 11:26 | NUR ---
CM/SS visited with the patient for social service consult. Plan: The patient will discharge home with home health. Home Health: The patient was provided with a patient preference form and chose [facility]. CM/SS spoke with Domi and made the referral. CM/SS faxed referral. She contacted this ss and verified they will start care on ThursdayApril 23. DME: The patient does not need a front wheeled walker due to already having one from past knee replacement. CM/SS will continue to follow.
[2020-04-19 12:00] VITALS: BP 143/74
--- NOTE | 2020-04-19 12:16 | Progress Note - Hospitalist ---
Subjective HPI/CC On Admission Date Seen by Provider: April 19, 2020 Time Seen by Provider: 09:10 Ju Sin is a 74-year-old female with past medical history of hypertension, hypothyroidism, GERD, osteoarthritis, who presented for a right total knee arthroplasty. Hospitalist service has been consulted for medical comanagement. She underwent her procedure today and is doing well postoperatively. She has no complaints or concerns at this time. She denies any fevers or chills. She denies any chest pain or shortness of breath. She denies any cough. She denies any abdominal pain, nausea, vomiting, constipation, or diarrhea. She denies any dysuria. She denies any rash. Subjective/Events-last exam she reports an episode of emesis this morning. She is not feeling nauseous. She got a bit queasy when she bent over during physical therapy. She denies any fevers or chills. She denies any chest pain or shortness of breath. She denies any abdominal pain. She has no other complaints or concerns. Objective Exam Vital Signs Vital Signs Date Time Temp Pulse Resp B/P (MAP) Pulse Ox O2 Delivery O2 Flow Rate FiO2 04/19/20 08:00 36.4 86 18 123/72 (89) 97 Nasal Cannula 3.00 Capillary Refill : Less Than 3 SecondsLess Than 3 Seconds General Appearance: No Apparent Distress, WD/WN Respiratory: Lungs Clear, Normal Breath Sounds, No Respiratory Distress Cardiovascular: Regular Rate, Rhythm, No Edema, No Murmur Gastrointestinal: Normal Bowel Sounds, Non Tender, Soft Extremity: Normal Inspection, Non Tender, No Pedal Edema Neurologic/Psychiatric: Alert, Oriented x3, No Motor/Sensory Deficits, Normal M ood/Affect Skin: Normal Color, Warm/Dry Results/Procedures Lab Laboratory Tests 04/19/20 04:50 Patient resulted labs reviewed. Imaging: Reviewed Imaging Report Assessment/Plan Assessment and Plan Assess & Plan/Chief Complaint Osteoarthritis of right knee Status post total knee arthroplasty Orthopedic Surgery primary continue pain regimen continue bowel regimen Incentive spirometery continue PT/OT Hypertension Hypothyroidism GERD Continue home meds DVT prophylaxis: Lovenox Diagnosis/Problems Diagnosis/Problems (1) Osteoarthritis of right knee Status: Acute Qualifiers: Osteoarthritis type: primary Qualified Codes: M17.11 - Unilateral primary osteoarthritis, right knee (2) S/P total knee arthroplasty Status: Acute Qualifiers: Laterality: right Qualified Codes: Z96.651 - Presence of right artificial knee joint (3) HTN (hypertension) Status: Chronic Qualifiers: Hypertension type: essential hypertension Qualified Codes: I10 - Essential (primary) hypertension (4) Hypothyroidism Status: Chronic Qualifiers: Hypothyroidism type: unspecified Qualified Codes: E03.9 - Hypothyroidism, unspecified (5) GERD (gastroesophageal reflux disease) Status: Chronic Qualifiers: Esophagitis presence: esophagitis presence not specified Qualified Codes: K21.9 - Gastro-esophageal reflux disease without esophagitis Clinical Quality Measures DVT/VTE Risk/Contraindication: Risk Factor Score Per Nursin RFS Level Per Nursing on Admit: 4+=Very High BRYNN VERDE MD April 19, 2020 12:16
--- NOTE | 2020-04-19 12:16 | Anesthesia-General Post-Op ---
General Patient Condition Mental Status/LOC: Same as Preop Cardiovascular: Satisfactory Nausea/Vomiting: Absent Respiratory: Satisfactory Pain: Controlled Complications: Absent Post Op Complications Complications None Follow Up Care/Instructions Patient Instructions None needed. Anesthesia/Patient Condition Patient Condition Patient is doing well, no complaints, stable vital signs, no apparent adverse anesthesia problems. No complications reported per nursing. RODDY MILTON CRNA April 19, 2020 12:16
--- NOTE | 2020-04-19 13:29 | NUR ---
IRF Evaluation Order received to evaluate patient for the ARU. Chart review complete and it appears the patient is ambulating (150ft, FWW) and transferring with supervision; therefore, patient does not require intensive therapies and intends to return home. Thank you for this referral.
--- NOTE | 2020-04-19 13:44 | NUR ---
RD ASSESSMENT PMHx: HTN; hypothyroidism; GERD; chronic diarrhea; s/p R TKA PT INTERACTION: Pt was awake and pleasant during nutrition assessment. Pt states current appetite is poor, and has been this way since her surgery. Note avg PO intake 50% x2meal, per chart review. Pt states following a regular diet at home, and has no issues with chewing/swallowing food. Pt states some recent issues with nausea and vomiting, and "more diarrhea than constipation." Note last BM was 04/18, and pt currently on bowel regimen of senna BID, per chart review. Pt states recent wt loss "after my first surgery" (approx 6mon ago). Note 12# wt loss x7mon, per chart review. ABNORMAL NUTRITION-RELATED LAB VALUES LOW: Ca 8.1; HIGH: BUN 28; glu 108 Est. kcal needs: 0383-2510 kcal | 20-25 kcal/kg Est. Pro needs: 71-89 g Pro | 0.8-1.0 g Pro/kg PES STATEMENT: Inadequate oral intake (NI-2.1) related to loss of appetite | nausea | vomiting | diarrhea as evidenced by pt interview | avg PO intake 50% x2meal INTERVENTION: Continue with current diet order of Regular diet. Pt may benefit from nutrition supplementation if PO intake declines. Encouraged pt to eat when able. Will continue to follow and reassess as pt needs, intake, and status change. MONITOR/EVALUATE: PO Intake; Plan of Care; Hydration Status; Weight Status; Lab Values Deion Loaiza, MS, RD, LD
--- NOTE | 2020-04-19 14:53 | Physical Therapy Daily Note ---
PT Daily Note-Current Subjective Patient agrees to PT. Spouse present. Pain Numeric Pain Scale: 9 Location: Right Location Body Site: Knee Pain Description: Acute Mental Status Patient Orientation: Normal For Age Attachments: IV Transfers SCALE: Activities may be completed with or without assistive devices. 7-Cgkgnscwbc-ievlgjb completes the activity by him/herself with no assistance from a helper. 5-Set-up or Clean-up Assistance-helper sets up or cleans up; patient completes activity. [place] assists only prior to or following the activity. 4-Supervision or Touching Assistance-helper provides verbal cues and/or touching/steadying and/or contact guard assistance as patient completes activity. Assistance may be provided throughout the activity or intermittently. 3-Partial/Moderate Assistance-helper does LESS THAN HALF the effort. [place] lifts, holds or supports trunk or limbs, but provides less than half the effort. 2-Substantial/Maximal Assistance-helper does MORE THAN HALF the effort. [place] lifts or holds trunk or limbs and provides more than half the effort. 3-Hawatxzhv-ykbaui does ALL the effort. Patient does none of the effort to complete the activity. Or, the assistance of 2 or more helpers is required for the patient to complete the activity. If activity was not attempted, code reason: 7-Patient Refused. 9-Not Applicable-not attempted and the patient did not perform the activity before the current illness, exacerbation or injury. 10-Not Attempted due to Environmental Limitations-(lack of equipment, weather restraints, etc.). 88-Not Attempted due to Medical Conditions or Safety Concerns. Roll Left & Right (QC): 5 Sit to Lying (QC): 4 Lying to Sitting/Side of Bed(Q: 5 Sit to Stand (QC): 5 Chair/Fen-tg-Pdrvz Xfer(QC): 5 Weight Bearing Right Lower Extremity: Right Weight Bearing/Tolerated Gait Training Does the Patient Walk?: Yes Distance: 200' Walk 10 feet (QC): 5 Walk 50 ft with 2 Turns(QC): 5 Walk 150 ft (QC): 5 Gait Assistive Device: FWW slow and antalgic Exercises Supine Ex: Ankle pumps, Quad Set, Heel Slides, Straight leg raise Supine Reps: 15 Seated Therapy Exercises: Ankle pumps, Long arc quads Seated Reps: 15 Assessment Patient tolerated treatment well and will dismiss in a.m. Patient progressing per plan. PT Shelter Goals Shelter Goals PT Surgical Supply Assistant Goals Time Frame: Apr 25, 2020 Roll Left & Right (QC): 6 Sit to Lying (QC): 6 Lying-Sitting on Side/Bed(QC): 6 Sit to Stand (QC): 4 Chair/Ogb-lb-Qgrwu Xfer(QC): 4 Walk 10 feet (QC): 4 Walk 50ft with 2 Turns (QC): 4 Walk 150 ft (QC): 4 1 Step (curb) (QC): 4 4 Steps (QC): 4 PT Plan Treatment/Plan Treatment Plan: Continue Plan of Care Treatment Plan: Bed Mobility, Education, Functional Activity Ale, Functional Strength, Gait, Safety, Therapeutic Exercise, Transfers Treatment Duration: Apr 25, 2020 Frequency: 11 times per week Estimated Hrs Per Day: .25 hour per day Patient and/or Family Agrees t: Yes Time/GCodes Time In: 1335 Time Out: 1358 Total Billed Treatment Time: 23 Total Billed Treatment 1 visit EX 12 min GT 11 min JOHN MUNOZ PT April 19, 2020 14:53
[2020-04-19 15:27] VITALS: BP 198/81
[2020-04-19 19:25] VITALS: BP 156/97
[2020-04-20 00:40] VITALS: BP 149/67
[2020-04-20] MEDS: oxyCODONE/APAP 5/325MG (PERCOCET 5) TABLET PO PRN ×2 (03:59→07:42)
[2020-04-20 04:05] VITALS: BP 177/72
[2020-04-20 05:14] LABS: HEMOGLOBIN 11.8 G/DL (11.5-16.0)
[2020-04-20] MEDS: LEVOTHYROXINE 50 MCG (LEVOTHROID) TAB PO SCH (05:58)
[2020-04-20] MEDS: Omeprazole 40 MG PO SCH (06:37)
[2020-04-20] MEDS: MULTIVIT W/MINERALS TAB (THERAGRAN M) PO SCH (06:59)
[2020-04-20] MEDS ORDERED: HYDROmorphone 2 MG/ML VIAL (DILAUDID) IVP PRN (07:00)
--- NOTE | 2020-04-20 07:02 | Progress Note ---
Standard Progress Note Progress Notes/Assess & Plan Date Seen by a Provider: April 20, 2020 Time Seen by a Provider: 07:00 Progress/Assessment & Plan post op check no complaints Radiographs--HW well positioned without fracture RLE--2 plus DP pulse with brisk cap refill. Intact sensation throughout. intact DF and PF of toes and ankle. s/p RTKA mobilize as able Final Diagnosis reports pain last PM but better today Vital Signs Date Time Temp Pulse Resp B/P (MAP) Pulse Ox O2 Delivery O2 Flow Rate FiO2 04/20/20 04:05 37.6 85 20 177/72 (107) 95 Room Air 04/20/20 00:40 36.7 70 20 149/67 (94) 97 Room Air 04/19/20 20:10 Room Air 04/19/20 19:25 36.3 79 16 156/97 (116) 96 Room Air 04/19/20 15:27 36.6 74 15 198/81 (120) 93 Room Air 04/19/20 12:00 37.1 74 20 143/74 (97) 99 Room Air 04/19/20 09:00 98 Room Air 04/19/20 08:00 36.4 86 18 123/72 (89) 97 Nasal Cannula 3.00 I & O 04/20/20 07:00 Intake Total 1910 ml Output Total 850 ml Balance 1060 ml Laboratory Tests Test 04/20/20 04:54 Range/Units Hemoglobin 11.8 11.5-16.0 G/DL Hematocrit 36 35-52 % RLE--incision clean and dry. No calf tenderness. Neg Dominic's s/p RTKA DC after PT today MYRIAM AVILA MD April 20, 2020 07:01
--- NOTE | 2020-04-20 07:14 | DISCHARGE SUMMARY ---
DATE OF SERVICE: DIAGNOSES: 1. Right knee osteoarthritis. 2. Hypothyroidism. 3. Hypertension. 4. Arrhythmia. 5. Reflux. PROCEDURE: Right total knee arthroplasty. SUMMARY: The patient is a 74-year-old female who underwent a right total knee arthroplasty on the day of admission. Postoperatively, she did very well. At the time of discharge, her wound was clean and dry. She had no calf tenderness. Negative Homans sign. She was tolerating diet well and tolerating pain with oral pain medication. CONDITION AT DISCHARGE: Good. DISCHARGE DIET: Regular. FOLLOWUP: Followup is in three weeks. Home physical therapy has been arranged. DISCHARGE MEDICATIONS: Home medications, Percocet as needed for pain and one aspirin per day for four weeks. Job ID: [id number] DocumentID: [id number] Dictated Date: 04/19/2020 15:16:25 Outside Cutter Hand Date: 04/20/2020 07:13:41 Dictated By: MYRIAM AVILA MD
--- NOTE | 2020-04-20 07:30 | NUR ---
DILUADID FREELANCE PATTERNMAKER DISCONTINUED 60ML WASTED WITH MAGAN FERRARO RN
[2020-04-20] MEDS: ENOXAPARIN 30 MG/0.3 ML (LOVENOX) SYR SC SCH (07:41)
[2020-04-20] MEDS: VERAPAMIL HCL 40 MG PO SCH (07:42)
[2020-04-20] MEDS: ASPIRIN E.C. 81 MG (ECOTRIN) TAB PO SCH (07:42)
[2020-04-20] MEDS: LOSARTAN 100 MG (COZAAR) TABLET PO SCH (07:42)
[2020-04-20] MEDS: SENNA W/DOCUSATE (SENOKOT S) TABLET PO SCH (07:43)
[2020-04-20 08:00] VITALS: BP 133/85
--- NOTE | 2020-04-20 09:33 | Physical Therapy Daily Note ---
PT Daily Note-Current Subjective Patient agrees to PT. No c/o. Pain Numeric Pain Scale: 5-Moderate Pain Location: Right Location Body Site: Knee Pain Description: Acute Mental Status Patient Orientation: Normal For Age Transfers SCALE: Activities may be completed with or without assistive devices. 5-Hciwchgplb-wjploff completes the activity by him/herself with no assistance from a helper. 5-Set-up or Clean-up Assistance-helper sets up or cleans up; patient completes activity. [place] assists only prior to or following the activity. 4-Supervision or Touching Assistance-helper provides verbal cues and/or touching/steadying and/or contact guard assistance as patient completes activity. Assistance may be provided throughout the activity or intermittently. 3-Partial/Moderate Assistance-helper does LESS THAN HALF the effort. [place] lifts, holds or supports trunk or limbs, but provides less than half the effort. 2-Substantial/Maximal Assistance-helper does MORE THAN HALF the effort. [place] lifts or holds trunk or limbs and provides more than half the effort. 6-Kmjdytnnz-ngcrxb does ALL the effort. Patient does none of the effort to complete the activity. Or, the assistance of 2 or more helpers is required for the patient to complete the activity. If activity was not attempted, code reason: 7-Patient Refused. 9-Not Applicable-not attempted and the patient did not perform the activity before the current illness, exacerbation or injury. 10-Not Attempted due to Environmental Limitations-(lack of equipment, weather restraints, etc.). 88-Not Attempted due to Medical Conditions or Safety Concerns. Roll Left & Right (QC): 6 Lying to Sitting/Side of Bed(Q: 6 Sit to Stand (QC): 6 Chair/Clx-dl-Eebdz Xfer(QC): 6 Weight Bearing Right Lower Extremity: Right Weight Bearing/Tolerated Gait Training Does the Patient Walk?: Yes Distance: 200' Walk 10 feet (QC): 6 Walk 50 ft with 2 Turns(QC): 6 Walk 150 ft (QC): 6 Gait Assistive Device: FWW much improved gait sequence, reciprocal pattern Exercises Supine Ex: Ankle pumps, Quad Set, Heel Slides, Straight leg raise Supine Reps: 15 Seated Therapy Exercises: Long arc quads Seated Reps: 15 Assessment Patient tolerated treatment well and is up in recliner with needs met. Patient dismissing to home this a.m. with spouse and home health intervention. Patient was issued HEP, per physician, and has been instructed to continue. Patient voices understanding. PT Half-Way Goals Half-Way Goals PT Livestock Haulier Goals Time Frame: Apr 25, 2020 Roll Left & Right (QC): 6 Sit to Lying (QC): 6 Lying-Sitting on Side/Bed(QC): 6 Sit to Stand (QC): 4 Chair/Ssp-mq-Stjai Xfer(QC): 4 Walk 10 feet (QC): 4 Walk 50ft with 2 Turns (QC): 4 Walk 150 ft (QC): 4 1 Step (curb) (QC): 4 4 Steps (QC): 4 PT Plan Treatment/Plan Treatment Plan: Discontinue PT Treatment Plan: Bed Mobility, Education, Functional Activity Ale, Functional Strength, Gait, Safety, Therapeutic Exercise, Transfers Treatment Duration: Apr 25, 2020 Frequency: 11 times per week Estimated Hrs Per Day: .25 hour per day Patient and/or Family Agrees t: Yes Time/GCodes Time In: 830 Time Out: 853 Total Billed Treatment Time: 23 Total Billed Treatment 1 visit EX 14 min GT 9 min JOHN MUNOZ PT April 20, 2020 09:33
--- NOTE | 2020-04-20 10:11 | NUR ---
CM/SS follow up. The patient states she is doing good today. CM/SS informed her that her home health with [facility] is set up for Thursday. She verbalized understanding. CM/SS notified the nurse of discharge plans. The patient reports that her is coming to get her today and have a belt picker time for around 12. No further needs at this time.
[2020-04-20 11:33] VITALS: BP 133/85
== END 2020-04-20 11:35 | disposition home health service (06) | DRG 470 ==
LOC: 4TH 08:09 → SURG 08:10 → 4TH 12:00
PROVIDERS: ADMIT Orthopaedic Surgery; ATTEND Orthopaedic Surgery
PROC: 0SRC0J9 Replacement of Right Knee Joint with Synthetic Substitute, Cemented, Open Approach (ICD-10-PCS; principal; 2020-04-18 09:24)
DX: M17.11 Unilateral primary osteoarthritis, right knee (principal); E03.9 Hypothyroidism, unspecified; I10 Essential (primary) hypertension; K21.9 Gastro-esophageal reflux disease without esophagitis; I49.9 Cardiac arrhythmia, unspecified; Z87.891 Personal history of nicotine dependence; Z90.49 Acquired absence of other specified parts of digestive tract; Z96.652 Presence of left artificial knee joint
CPT/HCPCS: 36415; 73560; 85014; 85018; 86850; 86900; 86901; 94640